=== PATIENT | male | born 1955 | race Caucasian/White ===

== ENCOUNTER 2020-11-09 10:16 | Outpatient (CLI) | payer MEDICARE, SELFPAY ==
[2020-11-09 10:37] LABS: Basophils Absolute Auto 0.1 K/mm3 (0.0-0.1); Basophils Percent Auto 0.7 % (0.2-1.2); Eosinophils Absolute Auto 0.2 K/mm3 (0-0.3); Eosinophils Percent Auto 1.8 % (0-4.4); Hematocrit 50.3 % (42.0-52.0); Hemoglobin 17.2 g/dL (14.0-18.0); Immature Granulocyte Absolute 0.04 K/mm3 (0.00-0.031); Immature Granulocyte Percent A 0.5 % (0-0.5); Lymphocytes Absolute Auto 1.74 K/mm3 (0.9-3.2); Lymphocytes Percent Auto 21.3 % (18.3-44.2); Mean Corpuscular HGB Conc 34.2 g/dl (32-36); Mean Corpuscular Volume 96.5 fl (80-100); Mean Platelet Volume 10.2 fl (7.4-10.4); Monocytes Absolute Auto 0.7 K/mm3 (0.1-0.6); Monocytes Percent Auto 8.4 % (2.6-8.5); Neutrophils Absolute Auto 5.5 K/mm3 (1.3-6.7); Neutrophils Percent Auto 67.3 % (45.5-73.1); Platelet Count Result 175 k/mm3 (150-375); Red Blood Count 5.21 M/mm3 (4.6-6.20); Red Cell Distribution Width 12.9 % (11.5-14.5); White Blood Count 8.2 K/mm3 (4.5-10.0)
[2020-11-09 11:43] LABS: Vitamin D 25 Hydroxy 44.2 ng/mL
[2020-11-09 13:03] LABS: Alanine Aminotransferase 46 U/L (4-50); Albumin Level 4.4 g/dL (3.5-5.1); Alkaline Phosphatase 53 U/L (38-126); Anion Gap 6 mmol/L (8-16); Aspartate Amino Transferase 27 U/L (17-59); Bilirubin,Total 1.3 mg/dL (0.2-1.3); Blood Urea Nitrogen 16 mg/dL (9-20); Calcium 9.7 mg/dL (8.4-10.2); Carbon Dioxide 29 mmol/L (22-30); Chloride 105 mmol/L (98-107); Cholesterol 193 mg/dL (0-200); Estimated Glomerular Filt Rate > 60; Glucose 113 mg/dL (65-110); HDL Direct 36 mg/dL; Potassium 4.5 mmol/L (3.4-5.0); Sodium 140 mmol/L (137-145); Triglycerides 113 mg/dL (<150)
[2020-11-09 13:13] LABS: LDL Cholesterol Direct 118 mg/dL
== END 2020-11-09 10:17 | disposition home or self-care (01) ==
PROVIDERS: PCP Family Medicine; Visit Provider Nurse Practitioner Family
DX: E55.9 Vitamin D deficiency, unspecified (principal); E78.5 Hyperlipidemia, unspecified; Z72.0 Tobacco use
CPT/HCPCS: 36415; 80053; 80061; 82306; 82607; 82746; 85025

== ENCOUNTER 2020-11-23 08:27 | Outpatient (CLI) | payer MEDICARE, SELFPAY ==
--- NOTE | ~2020-11-23 | CT_ITS ---
EXAMINATION: CT diagnostic chest wo con DATE: 11/23/2020 08:46 INDICATION: Encounter for screening for malignant neoplasm of the respiratory organs TECHNIQUE: Computed tomography (CT) of the chest was performed without intravenous contrast. The dose -length product (DLP) was 226.21 mGy-cm. Automated exposure control and iterative reconstruction tech nique were employed. COMPARISON: None FINDINGS: There is mild dependent atelectasis. A 3 mm nodule is present in the left lower lobe. The l ungs are free of acute opacities. There is no pleural effusion or pneumothorax. No pathologically enl arged thoracic lymph nodes are identified. The heart size is normal. Calcified coronary artery athero sclerosis is noted. There is mild bilateral gynecomastia. A 7 mm subcutaneous nodule of the left of m idline in the upper chest likely represents a sebaceous cyst. There are bridging osteophytes at multi ple levels in the spine, consistent with diffuse idiopathic skeletal hyperostosis (DISH). IMPRESSION: 1. 3 mm nodule of the left lower lobe, likely old granulomatous disease. Consider follow-up CT in 12 months. Reviewed, dictated and finalized at location A. IMPRESSION: 1. 3 mm nodule of the left lower lobe, likely old granulomatous disease. Consid er follow-up CT in 12 months.
--- NOTE | ~2020-11-23 | US_ITS ---
EXAMINATION: US aorta [facility] DATE: 11/23/2020 08:54 INDICATION: Nicotine dependence. Hypercholesterolemia. TECHNIQUE: Grayscale, color Doppler, and pulsed Doppler images of the aorta and common iliac arteries were obtained. COMPARISON: None. FINDINGS: The proximal aorta measures 3.1 cm in maximal AP diameter. The mid aorta measures 2.9 cm. There is a fusiform infrarenal aneurysm in the mid to distal aorta which measures up to 5.1 cm maximal diameter which tapers to 2.2 cm at the bifurcation. The right common iliac artery measures 1.6 cm. The left co mmon iliac artery measures 2.1 cm. IMPRESSION: 1. Fusiform infrarenal abdominal aortic aneurysm measuring up to 5.1 cm in maximal diameter. Reviewed, dictated and finalized at location A. IMPRESSION: 1. Fusiform infrarenal abdominal aortic aneurysm measuring up to 5.1 cm in maxi mal diameter.
== END 2020-11-23 08:28 | disposition home or self-care (01) ==
LOC: ANHIMG 08:30
PROVIDERS: PCP Family Medicine; Visit Provider Nurse Practitioner Family
DX: Z12.2 Encounter for screening for malignant neoplasm of respiratory organs (principal); R91.1 Solitary pulmonary nodule; F17.210 Nicotine dependence, cigarettes, uncomplicated; I25.10 Atherosclerotic heart disease of native coronary artery without angina pectoris; I71.4 Abdominal aortic aneurysm, without rupture
CPT/HCPCS: 71250; 76706

== ENCOUNTER 2021-01-24 07:28 | Outpatient (CLI) | payer MEDICARE, SELFPAY ==
--- NOTE | 2021-01-24 08:00 | ECHO_ITS ---
Patient Info Name: Wes Huang Age: 65 years : 1955 Gender: Male Ht: 71 in Wt: 234 lbs BSA: 2.34 m2 HR: 54 bpm BP: 143 / 73 mmHg Heart Rhythm: Sinus Rhythm Exam Date: 01/24/2021 9:09 AM Exam Location: [facility] Patient Status: Outpatient Admit Date: 01/24/2021 Staff Ordering Physician: Geraldine Gonzales NP Director Of Retail: Simran Chavez RDCS Attending Provider: ANA MARIA RAMEY DO Referring Physician: Janet NORRIS; Exam Type: CA echo doppler color flow Study Info Indications I71.4 - Abdominal aortic aneurysm, without rupture Complete two-dimensional, color flow and Doppler transthoracic echocardiogram is performed. Summary 1. Complete two-dimensional, color flow and Doppler transthoracic echocardiogram is performed. 2. Left ventricular chamber dimension is normal. 3. Left ventricular systolic function is normal, estimated at 60-65%. 4. The left ventricular diastolic function is grade I diastolic dysfunction. 5. E/e' 10 is mildly elevated. 6. There is trace aortic valve regurgitation. 7. The mitral valve has mildly calcified annulus. 8. There is trace mitral valve regurgitation. 9. There is trace tricuspid valve regurgitation. 10. No pulmonary hypertension, estimated pulmonary arterial systolic pressure is 36 mmHg. Left Ventricle E/e' 10 is mildly elevated. Left ventricular chamber dimension is normal. Left ventricular systolic function is normal, estimated at 60-65%. The left ventricular diastolic function is grade I diastolic dysfunction. Right Ventricle Right ventricular systolic function is normal and with normal TAPSE 2.7 cm. Right ventricular chamber dimension is normal. Left Atria Left atrial chamber dimension is normal. Right Atria Right atrial chamber dimension is normal. Aortic Valve The aortic valve is trileaflet. There is no aortic valve stenosis. There is trace aortic valve regurgitation. Pulmonic Valve There is no pulmonic regurgitation. Mitral Valve The mitral valve has mildly calcified annulus. There is no mitral valve stenosis. There is trace mitral valve regurgitation. Tricuspid Valve There is trace tricuspid valve regurgitation. No pulmonary hypertension, estimated pulmonary arterial systolic pressure is 36 mmHg. Pericardium/Pleural There is no pericardial effusion. Inferior Vena Cava Normal inferior vena cava with >50% collapse upon inspiration consistent with normal right atrial pressure, 5 mmHg. Aorta The aortic root size at the sinus of Valsalva is normal. Left Ventricular Outflow Tract Name Value Normal LVOT 2D LVOT Diameter 1.9 cm LVOT Doppler LVOT Peak Gradient 5 mmHg LVOT Mean Gradient 2 mmHg LVOT VTI 31 cm LVOT VTI/AV VTI Ratio 0.8 LVOT Stroke Volume 86 ml LVOT CO 4.2 l/min LVOT CI 1.8 l/min/m2 Pulmonic Valve Name
--- NOTE | 2021-01-24 08:01 | EST_ITS ---
Patient Info Name: Wes Huang Age: 65 years : 1955 Gender: Male Ht: 71 in Wt: 234 lbs BSA: 2.34 m2 HR: 57 bpm BP: 142 / 97 mmHg Heart Rhythm: Sinus Rhythm Exam Date: 01/24/2021 9:02 AM Exam Location: [facility] Patient Status: Outpatient Admit Date: 01/24/2021 Staff Ordering Physician: Geraldine Gonzales NP Attending Provider: Geraldine Gonzales NP Exercise Technologist: Nay Oliveira RDCS Exercise Physician: Ren Moss DO Exam Type: CA stress test treadmill Study Info Indications I71.4 - Abdominal aortic aneurysm, without rupture An exercise stress test was performed. Summary 1. 1. Negative [facility] exercise stress test for ischemic ST changes by ECG criteria. 2. 2. Good functional capacity, achieving 8.6 METs of workload. 3. 3. Baseline hypertension. 4. 4. Appropriate HR response to exercise. 5. 5. Appropriate HR recovery at 1 minute post exercise. 6. 6. No imaging with stress testing. 7. 7. Patient informed of the above results. Protocol: [facility] ECG Details Stage: REST Duration (min): 6 min : 26 sec Speed (mph): 0.0 Grade (%): 0 HR (bpm): 58 SBP (mmHg): 142 DBP (mmHg): 97 METS: --- Stage: REST Duration (min): 16 min : 12 sec Speed (mph): 0.0 Grade (%): 0 HR (bpm): 60 SBP (mmHg): 142 DBP (mmHg): 97 METS: --- Stage: STAGE 1 Duration (min): 1 min : 0 sec Speed (mph): 1.7 Grade (%): 10 HR (bpm): 89 SBP (mmHg): 142 DBP (mmHg): 97 METS: --- Stage: STAGE 1 Duration (min): 2 min : 0 sec Speed (mph): 1.7 Grade (%): 10 HR (bpm): 102 SBP (mmHg): 142 DBP (mmHg): 97 METS: --- Stage: STAGE 1 Duration (min): 3 min : 0 sec Speed (mph): 1.7 Grade (%): 10 HR (bpm): 103 SBP (mmHg): 171 DBP (mmHg): 92 METS: --- Stage: STAGE 2 Duration (min): 1 min : 0 sec Speed (mph): 2.5 Grade (%): 12 HR (bpm): 110 SBP (mmHg): 171 DBP (mmHg): 92 METS: --- Stage: STAGE 2 Duration (min): 2 min : 0 sec Speed (mph): 2.5 Grade (%): 12 HR (bpm): 114 SBP (mmHg): 140 DBP (mmHg): 90 METS: --- Stage: STAGE 2 Duration (min): 3 min : 0 sec Speed (mph): 2.5 Grade (%): 12 HR (bpm): 120 SBP (mmHg): 140 DBP (mmHg): 90 METS: --- Stage: STAGE 3 Duration (min): 0 min : 55 sec Speed (mph): 3.4 Grade (%): 14 HR (bpm): 132 SBP (mmHg): 140 DBP (mmHg): 90 METS: --- Stage: RECOVERY Duration (min): 0 min : 4 sec Speed (mph): 1.5 Grade (%): 0 HR (bpm): 131 SBP (mmHg): 140 DBP (mmHg): 90 METS: --- Stage: RECOVERY Duration (min): 1 min : 4 sec Speed (mph): 0.0 Grade (%): 0 HR (bpm): 109 SBP (mmHg): 140 DBP (mmHg): 90 METS: --- Stage: RECOVERY Duration (min): 2 min : 4 sec Speed (mph): 0.0 Grade (%): 0 HR (bpm): 80 SBP (mmHg): 140 DBP (mmHg):
--- NOTE | 2021-01-29 12:46 | WPDHOLTEREM ---
Holter/Event Monitor Holter/Event Monitor Date of procedure: 01/24/21 Holter/Event Procedure: 48 Hr Holter Monitor Indications: Cardiac arrhythmia Conclusion: 1. 48 hour holter monitor on 01/24/21. 2. Underlying rhythm is sinus rhythm. HR range 41-102 bpm; average HR 57 bpm. 3. There are 105 premature supraventricular complexes, 2 supraventricular couplets, and 3 supraventricular trigeminy. No supraventricular tachycardia. 4. There are 124 premature ventricular complexes. No ventricular tachycardia. 5. No sinoatrial or atrioventricular blocks. No significant pauses greater than 2 seconds. 6. Patient reports symptoms of heart racing, shortness of breath which demonstrate sinus rhythm, HR range 50-56 bpm and one PAC.
== END 2021-01-24 07:29 | disposition home or self-care (01) ==
LOC: ANHCARD 07:32
PROVIDERS: PCP Family Medicine; Visit Provider Nurse Practitioner Family
DX: I71.9 Aortic aneurysm of unspecified site, without rupture (principal); I49.9 Cardiac arrhythmia, unspecified
CPT/HCPCS: 93017; 93225; 93226; 93306

== ENCOUNTER 2021-03-14 01:30 | Day surgery (SDC) | payer MEDICARE, SELFPAY ==
[2021-02-21 14:45] VITALS: BMI 32.8
--- NOTE | 2021-03-13 13:28 | P.HP_ITS ---
History of Present Illness History of Present Illness Consent: Risks, benefits, and alternatives have been discussed and questions answered. Patient agrees to proceed with procedure. Chief complaint: neoplasm screening Narrative: Wes Huang is a 65 year old male referred for colon cancer screening. His last colonoscopy was 10 years ago Review of Systems Review of Systems: All systems reviewed & are unremarkable except as noted in HPI and below PMFSH Past Medical History Medical History Aortic aneurysm without rupture BMI 32.0-32.9,adult BMI 33.0-33.9,adult Hyperlipidemia Vitamin D deficiency, unspecified Surgical History Surgical History H/O bilateral inguinal hernia repair H/O right knee surgery History of neoplasm of bladder tumor removal 2014 Family History Family History Father , 1970 Stomach cancer Alcohol abuse Mother Pulmonary embolism Sibling Diabetes mellitus Social History Social History Smoking packs per day: 0.5 Smoking cigarettes per day: 10.0 Years smoked: 40 Smoking pack-years: 20.00 Smoking status: Former smoker Tobacco type: cigarettes Second hand tobacco smoke exposure: Yes Smoking end date: 11/20/20 Alcohol intake: current Drinks per week: 12 Substance use: former Substance use type: does not use Living arrangements: with family Additional occupation/education comments: [employer] Gender identity (if verbalized by the patient): Male Spiritual care concerns: No Meds Home Medications and Allergies Home Medications Medication Instructions Recorded Confirmed Type atorvastatin 40 mg tablet 40 mg PO DAILY #90 tablet 11/07/20 03/14/21 Rx cholecalciferol (vitamin D3) 12.5 mcg PO DAILY 11/07/20 02/21/21 History cyanocobalamin (vitamin B-12) 1,000 mcg PO DAILY 11/07/20 02/21/21 History 1,000 mcg capsule lutein 25 mg-zeaxanthin 5 mg 1 cap PO DAILY 11/07/20 02/21/21 History capsule tamsulosin 0.4 mg capsule 0.4 mg PO DAILY 11/07/20 02/21/21 History Allergies Allergy/AdvReac Type Severity Reaction Status Date / Time No Known Allergies Allergy Verified 03/14/21 06:50 Exam Resp: Auscultation: clear to auscultation bilaterally Cardio: Rate: regular rate Rhythm: regular rhythm GI: GI Palp: Yes Soft to palpation and No Tenderness to palpation present (GI) Assessment and Plan Assessment and plan (1) Screening for malignant neoplasm of colon: Code(s): Z12.11 - Encounter for screening for malignant neoplasm of colon Status: Acute Assessment and Plan: Colonoscopy with possible biopsy or polypectomy or cautery or injection of substances.
[2021-03-14 06:50] VITALS: BP 137/74; PULSE 71; RESP 20; TEMP 36.3; O2SAT 97
[2021-03-14] MEDS: LACTATED RINGERS 1,000 ML 150 ML IV CONT (07:01)
--- NOTE | 2021-03-14 07:45 | WPDANESEPPF ---
Anes - Initial Pre Proc Eval Procedure: Operation Date: 03/14/21 08:00 Proposed Procedures p Screening Colonoscopy - Filiberto Contreras MD Date/Time: 03/14/21 07:45 Surgeon: Filiberto Contreras MD Pre Op Diagnosis: neoplasm screening Patient Data Age: 65 Gender: M Height: 1.8 m Weight: 111.2 kg Last Vital Signs Temp 97.4 F L 03/14/21 06:50 Pulse 71 03/14/21 06:50 Resp 20 03/14/21 06:50 BP 137/74 03/14/21 06:50 Pulse Ox 97 03/14/21 06:50 Allergies Allergy/AdvReac Type Severity Reaction Status Date / Time No Known Allergies Allergy Verified 03/14/21 06:50 Home Medications Medication Instructions Recorded Confirmed Type atorvastatin 40 mg tablet 40 mg PO DAILY #90 tablet 11/07/20 03/14/21 Rx cholecalciferol (vitamin D3) 12.5 mcg PO DAILY 11/07/20 02/21/21 History cyanocobalamin (vitamin B-12) 1,000 mcg PO DAILY 11/07/20 02/21/21 History 1,000 mcg capsule lutein 25 mg-zeaxanthin 5 mg 1 cap PO DAILY 11/07/20 02/21/21 History capsule tamsulosin 0.4 mg capsule 0.4 mg PO DAILY 11/07/20 02/21/21 History Patient hx anesthesia problems: none Family hx anesthesia problems: none Results Review: All pre-operative results and documents have been reviewed as part of the pre-operative evaluation. [facility] Past Medical History Medical History Aortic aneurysm without rupture BMI 32.0-32.9,adult BMI 33.0-33.9,adult Hyperlipidemia Vitamin D deficiency, unspecified Surgical History Surgical History H/O bilateral inguinal hernia repair H/O right knee surgery History of neoplasm of bladder tumor removal 2014 Family History Family History Father , 1970 Stomach cancer Alcohol abuse Mother Pulmonary embolism Sibling Diabetes mellitus Social History Social History Smoking packs per day: 0.5 Smoking cigarettes per day: 10.0 Years smoked: 40 Smoking pack-years: 20.00 Smoking status: Former smoker Tobacco type: cigarettes Second hand tobacco smoke exposure: Yes Smoking end date: 11/20/20 Alcohol intake: current Drinks per week: 12 Substance use: former Substance use type: does not use Living arrangements: with family 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 Informed Consent: The patient's anesthetic plan and its attendant risks and benefits were discussed with the patient/family/POA. Questions were solicited and answers provided to the satisfaction of the patient/family/POA.
[2021-03-14] MEDS: SIMETHICONE ORAL SUSPENSION 20 MG/0.3 ML 30 ML BOTTLE 0.6 ML IRRIGATION (08:04)
[2021-03-14 08:14] VITALS: BP 125/81; PULSE 55; RESP 16; O2SAT 96
[2021-03-14 08:24] VITALS: BP 124/84; PULSE 55; RESP 16; O2SAT 98
[2021-03-14 08:34] VITALS: BP 134/83; PULSE 53; RESP 20; O2SAT 100
== END 2021-03-14 08:53 | disposition home or self-care (01) ==
PROVIDERS: PCP Family Medicine; Visit Provider Internal Medicine Gastroenterology
PROC: 0DJD8ZZ Inspection of Lower Intestinal Tract, Via Natural or Artificial Opening Endoscopic (ICD-10-PCS; CPT 45378; principal; 2021-03-14 08:00)
DX: Z12.11 Encounter for screening for malignant neoplasm of colon (principal); D12.4 Benign neoplasm of descending colon; K63.5 Polyp of colon; K64.4 Residual hemorrhoidal skin tags; K64.8 Other hemorrhoids; I71.4 Abdominal aortic aneurysm, without rupture; E78.5 Hyperlipidemia, unspecified; E55.9 Vitamin D deficiency, unspecified; Z87.891 Personal history of nicotine dependence; E66.9 Obesity, unspecified; Z68.34 Body mass index [BMI] 34.0-34.9, adult
CPT/HCPCS: 45380; 45385; 88305; J2001; J2704; J7120

== ENCOUNTER 2021-11-08 13:33 | Outpatient (CLI) | payer MEDICARE, SELFPAY ==
--- NOTE | ~2021-11-08 | CT_ITS ---
EXAMINATION: CT diagnostic chest wo con DATE: 11/08/2021 14:03 INDICATION: Follow up evaluation of nodule TECHNIQUE: Computed tomography (CT) of the chest was performed without intravenous contrast. Addition al 3D reconstructions utilizing coronal maximum intensity projection (MIP) were performed. Automated exposure control and iterative reconstruction technique were employed. The dose-length product was 26 4.28 mGy-cm. COMPARISON: 11/23/2020 FINDINGS: No interval change in a previous noted 3 mm nodules in the anterior basilar segment of the left lower lobe consistent with old granulomatous disease. No significant change in scattered linear discoid at electasis/scarring in the bilateral lower lobes and lingula. No new or enlarging pulmonary nodules, p neumonia, pulmonary edema or pleural effusion. Heart size is normal. Atherosclerotic coronary artery calcific lesion. Aortic valve and mitral annular calcification. No pericardial effusion. Thoracic aor ta is normal in caliber. No pathologically enlarged thoracic lymphadenopathy. Diffuse hepatic steatos is with focal sparing along the gallbladder fossa. lymphadenopathy. Thoracic kyphosis with bridging o steophytes at multiple levels consistent with diffuse idiopathic skeletal hyperostosis (DISH). IMPRESSION: 1. Unchanged 3 mm left lower lobe nodule consistent with old granulomatous disease. 2. Stable appearance of chronic discoid atelectasis/scarring the lingula and bilateral lower lobes. 3. Diffuse hepatic steatosis. Reviewed, dictated and finalized at location A. IMPRESSION: 1. Unchanged 3 mm left lower lobe nodule consistent with old granulomatous dise ase. 2. Stable appearance of chronic discoid atelectasis/scarring the lingula and bi lateral lower lobes. 3. Diffuse hepatic steatosis.
--- NOTE | ~2021-11-08 | XR_ITS ---
XR knee LT 3V DATE: 11/08/2021 14:03 INDICATION: Pain and locking of left knee TECHNIQUE: [place] and standing AP and lateral views COMPARISON: None FINDINGS: There is a small suprapatellar knee joint effusion. No fracture or dislocation, periosteal reaction or bone destruction. There is mild periarticular spurring of the medial and patellofemoral compartments. There is minimal chondrocalcinosis. Knee joint spaces are relatively well preserved. Mild superior pole patellar enthesopathy. IMPRESSION: Mild osteoarthritis and chondrocalcinosis Small knee joint effusion Reviewed, dictated and finalized at location B.
== END 2021-11-08 13:34 | disposition home or self-care (01) ==
PROVIDERS: PCP Family Medicine; Visit Provider Nurse Practitioner Family
DX: R91.1 Solitary pulmonary nodule (principal); M17.12 Unilateral primary osteoarthritis, left knee; M25.462 Effusion, left knee; M40.204 Unspecified kyphosis, thoracic region; K76.0 Fatty (change of) liver, not elsewhere classified; I25.10 Atherosclerotic heart disease of native coronary artery without angina pectoris; I70.0 Atherosclerosis of aorta; M11.262 Other chondrocalcinosis, left knee; M76.9 Unspecified enthesopathy, lower limb, excluding foot
CPT/HCPCS: 71250; 73562

== ENCOUNTER 2022-02-05 14:30 | Outpatient (RCR) | payer MEDICARE, SELFPAY ==
[2021-11-07 10:03] VITALS: BMI 35.1
[2021-11-07 11:42] VITALS: BMI 35.1
[2022-02-11 13:47] VITALS: BMI 35.1
== END 2022-02-05 23:59 | disposition home or self-care (01) ==
LOC: ANHDMC 14:30
PROVIDERS: PCP Family Medicine; Visit Provider Family Medicine
DX: E11.65 Type 2 diabetes mellitus with hyperglycemia (principal); Z71.3 Dietary counseling and surveillance; Z71.89 Other specified counseling
CPT/HCPCS: 97802; G0108; G0109

== ENCOUNTER 2022-03-26 09:16 | Outpatient (CLI) | payer MEDICARE, SELFPAY ==
--- NOTE | 2022-03-26 09:31 | ECG_ITS ---
Measurements Intervals [place] Rate: 58 P: -1 NM: 149 QRS: -30 QRSD: 102 T: 38 QT: 392 QTc: 387 Interpretive Statements SINUS BRADYCARDIA BORDERLINE R WAVE PROGRESSION, ANTERIOR LEADS BORDERLINE ECG NO PREVIOUS ECG AVAILABLE FOR COMPARISON Electronically Signed On 03-26-2022 10:22:31 [employer] by Ren Moss D.O.
== END 2022-03-26 09:17 | disposition home or self-care (01) ==
PROVIDERS: PCP Family Medicine; Visit Provider Urology
DX: C67.9 Malignant neoplasm of bladder, unspecified (principal); E78.5 Hyperlipidemia, unspecified; R00.1 Bradycardia, unspecified
CPT/HCPCS: 87086; 93005

== ENCOUNTER 2022-04-01 00:25 | Day surgery (SDC) | payer MEDICARE, SELFPAY ==
--- NOTE | 2022-03-24 11:27 | PC.NURSE ---
Report to the Outpatient Waiting Room, entrance under the green pavilion located off [facility], at time __0745 on date _04/01/22 . Planned Procedure Time: __45 . Time changes happen often and if your time is changed the preop area will call you the afternoon before. - You and your visitor will be asked to self-screen and do not enter if you have any COVID symptoms. - Only one visitor is requested with a max of two and NO children visitors are allowed at this time. - The patient visitor may be requested to leave or wait in car when not with patient due to distancing restrictions. - A mask is optional within the hospital. Patients may have clear liquids (water, carbonated beverages, clear teas, apple juice) until 3 hours prior to surgery with a maximum of 20 ounces. - No food from midnight until time of surgery - Infants may have breast milk until 4 hours before surgery, formula 6 hours prior to surgery. - Children will be allowed to drink immediately following surgery. If applicable, please bring a bottle or sippy cup to assist with drinking. Juice, water, soda, and popsicles are readily available. For infants on formula, please bring formula the day of surgery. Pacifiers are allowed. Take the following medications with a SIP of water the morning of surgery: __NONE Medications to discontinue per physician _ALL VITAMINS AND SUPPLEMENTS 3 DAYS PRE OP LAST DOSE 03/28/22 Date to take last dose Please no make-up, nail swedish, hairspray, perfume, deodorant, or body powder the day of surgery. No jewelry (including any body piercings) or valuables the day of surgery, leave them at home. Please take a shower or bath the night before, or the morning of, surgery with an antibacterial soap. Wear comfortable, loose fitting clothing. Children are encouraged to wear pajamas. - Jewelry must be removed prior to entering the operating room. Rings and piercings that are not removed may be cut off. - The hospital will not accept responsibility for valuables. - Please leave all valuables, including medications, at home the day of surgery. If you are going home after surgery, a licensed delivery driver/supervisor must drive you home. - NO public transportation without another adult if you receive anesthesia. - We recommend that an adult stay with you for 24 hours following discharge. - We also recommend that you do not drive, make important decision, drink alcoholic beverages, or take any drugs that were not prescribed by your health care provider for at least 24 hours after your discharge time. Follow any additional instructions given to you from your surgeon. If you or anyone in your household have experienced Covid symptoms in the past week, please notify your surgeon or the nurse liaison at the phone number below for possible testing. Telephone instructions given to _PATIENT and asked if any additional questions and then verbalized understanding. Patient advised to call surgeon office or pre surgery nurse liaison [phone] if any additional questions.
[2022-03-24 11:38] VITALS: BMI 33.5
[2022-04-01] VITALS (7 sets, daily range): BP systolic 124–146; BP diastolic 68–81; PULSE 56–70; RESP 12–18; TEMP 36.6–37.3; O2SAT 97–99
[2022-04-01] MEDS: LACTATED RINGERS 1,000 ML 30 ML IV CONT (08:12)
--- NOTE | 2022-04-01 08:23 | WPDHPUPDATE1 ---
History and Physical Update Update Date/Time: 04/01/22 08:23 History and Physical has been reviewed, including an updated exam of the patient. There are NO changes in the patient's condition. Risks, benefits, and alternatives have been discussed and questions answered. Patient agrees to proceed with procedure.
--- NOTE | 2022-04-01 09:20 | WPDANESEPPF ---
Anes - Initial Pre Proc Eval Procedure: Operation Date: 04/01/22 09:45 Proposed Procedures p Cystoscopy with Bladder Biopsy Fulguration - Bruno Webb MD Date/Time: 04/01/22 09:20 Surgeon: Bruno Webb MD Pre Op Diagnosis: Bladder Ca Patient Data Age: 66 Gender: M Height: 1.8 m Weight: 110.9 kg Last Vital Signs Temp 99.2 F 04/01/22 07:58 Pulse 70 04/01/22 07:58 Resp 16 04/01/22 07:58 BP 124/80 04/01/22 07:58 Pulse Ox 98 04/01/22 07:58 O2 Del Method Room Air 04/01/22 07:58 Allergies Allergy/AdvReac Type Severity Reaction Status Date / Time No Known Allergies Allergy Verified 04/01/22 07:48 Home Medications Medication Instructions Recorded Confirmed Type cyanocobalamin (vitamin B-12) 1,000 mcg PO DAILY 11/07/20 03/24/22 History 1,000 mcg capsule lutein 25 mg-zeaxanthin 5 mg 1 cap PO DAILY 11/07/20 03/24/22 History capsule (Ocuvite Lutein) atorvastatin 40 mg tablet 40 mg PO DAILY #90 tabs 07/28/21 03/24/22 Rx albuterol sulfate 90 mcg/actuation 2 inh inhalation Q4H PRN shortness 10/24/21 03/24/22 Rx aerosol inhaler of breath or wheezing #8.5 grams blood sugar diagnostic (OneTouch #50 ea 02/07/22 Rx Verio test strips) lancets 30 gauge #200 ea 02/07/22 Rx celecoxib 100 mg capsule (Celebrex) 100 mg PO BID #60 caps 03/04/22 03/24/22 Rx cholecalciferol (vitamin D3) 125 125 mcg PO DAILY 03/24/22 03/24/22 History mcg (5,000 unit) tablet tamsulosin 0.4 mg capsule 0.4 mg PO DAILY #90 caps 03/31/22 Rx Patient hx anesthesia problems: none Family hx anesthesia problems: none Results Review: All pre-operative results and documents have been reviewed as part of the pre-operative evaluation. [facility] Past Medical History Medical History Aortic aneurysm without rupture BMI 32.0-32.9,adult BMI 33.0-33.9,adult BMI 35.0-35.9,adult Hyperlipidemia Vitamin D deficiency, unspecified Surgical History Surgical History H/O bilateral inguinal hernia repair H/O right knee surgery History of neoplasm of bladder tumor removal 2014 Family History Family History Father , 1970 Stomach cancer Alcohol abuse Mother Pulmonary embolism Sibling Diabetes mellitus Social History Social History Smoking packs per day: 0.5 Smoking cigarettes per day: 10.0 Years smoked: 40 Smoking pack-years: 20.00 Smoking status: Former smoker Tobacco type: cigarettes Second hand tobacco smoke exposure: Yes Smoking end date: 11/20/20 Alcohol intake: current Drinks per week: 10 Substance use: former Substance use type: does not use Living arrangements: with family Occupation/Education: retired Additional occupation/education comments: [employer] Gender identity (if verbalized by the patient): Male Spiritual care concerns: No Anes - Eval Final PreProcedure Day of Procedure 04/01/22 09:20 Patient weight: obese Heart: regular rate and rhythm Lungs: clear to auscultation Airway: Mallampati scale Neurological: alert and oriented Last oral intake: >/= 8 hours ASA classification: III Emergent: no Anesthetic plan: proceed Anesthesia type and monitoring: general LMA and standard monitoring Results Review: All pre-operative results and documents have been reviewed as part of the pre-operative evaluation. Informed Consent: The patient's anesthetic plan and its attendant risks and benefits were discussed with the patient/family/POA. Questions were solicited and answers provided to the satisfaction of the patient/family/POA.
[2022-04-01] MEDS: ceFAZolin 2 GM/D5W 50 ML 2 GM/50 ML BAG IVPB (09:29)
--- NOTE | 2022-04-01 10:04 | W.PM.PROC2 ---
Procedure Note - Detailed Date of Procedure 04/01/22 Pre-op Diagnosis Bladder Ca Post-op Diagnosis Same Procedure Performed Cysto with bladder biopsy and fulguration Surgeon Bruno Webb MD Anesthesia General Description of Procedure Patient is taken to the operative suite and correctly identified. Once anesthesia was obtained was placed in dorsal lithotomy position prepped draped usual sterile fashion. Twenty-two Salvadorean scope inserted the bladder. He has a small little papillary lesion along posterior wall measuring 2-3 mm. We used the cold cup biopsy to biopsy this area and then fulgurated the base. Prior resection site along the right lateral wall also revealed some irregularities. These lesions simply seemed to scrape off. We were able to biopsy 1 of the areas. We then fulgurated the area in general. 2% viscous lidocaine was inserted into the urethra patient is taken recovery stable condition. Please send a copy this report to my office Estimated Blood Loss 0 Drains No Packing No Pathology Yes Complications No immediate complications Condition Stable Disposition PACU
--- NOTE | 2022-04-01 10:30 | SUR.PHASEI ---
1030: Simple mask removed.
== END 2022-04-01 11:38 | disposition home or self-care (01) ==
PROVIDERS: PCP Family Medicine; Visit Provider Urology
PROC: 0TBB8ZX Excision of Bladder, Via Natural or Artificial Opening Endoscopic, Diagnostic (ICD-10-PCS; CPT 52204; principal; 2022-04-01 09:45)
DX: N30.80 Other cystitis without hematuria (principal); E78.5 Hyperlipidemia, unspecified; E55.9 Vitamin D deficiency, unspecified; I71.9 Aortic aneurysm of unspecified site, without rupture; Z87.891 Personal history of nicotine dependence; E66.9 Obesity, unspecified; Z68.34 Body mass index [BMI] 34.0-34.9, adult; Z79.51 Long term (current) use of inhaled steroids
CPT/HCPCS: 52204; 88305; A9270; J0690; J1100; J2405; J2704; J3010; J7120

== ENCOUNTER 2022-04-16 07:22 | Outpatient (CLI) | payer MEDICARE, SELFPAY ==
[2022-04-16 08:13] LABS: Hematocrit 45.6 % (42.0-52.0); Hemoglobin 15.6 g/dL (14.0-18.0); Immature Platelet Fraction Pct 7.2 % (0.9-11.2); Mean Corpuscular HGB Conc 34.2 g/dl (32-36); Mean Corpuscular Hemoglobin 31.9 pg (26-34); Mean Corpuscular Volume 93.3 fl (80-100); Mean Platelet Volume 10.4 fl (7.4-10.4); Platelet Count Result 196 k/mm3 (150-375); Red Blood Count 4.89 M/mm3 (4.6-6.20); Red Cell Distribution Width 12.9 % (11.5-14.5); White Blood Count 6.8 K/mm3 (4.5-10.0)
[2022-04-16 08:20] LABS: Creatinine Urine 104.4 mg/dL
[2022-04-16 08:26] LABS: Microalbumin Urine Random 121.1 mg/L (0-16.7)
[2022-04-16 08:28] LABS: Alanine Aminotransferase 43 U/L (6-50); Albumin Level 4.1 g/dL (3.5-5.1); Alkaline Phosphatase 64 U/L (38-126); Anion Gap 5 mmol/L (8-16); Aspartate Amino Transferase 23 U/L (17-59); Bilirubin,Total 1.1 mg/dL (0.2-1.3); Blood Urea Nitrogen 20 mg/dL (9-20); Calcium 8.9 mg/dL (8.4-10.2); Carbon Dioxide 33 mmol/L (22-30); Chloride 103 mmol/L (98-107); Cholesterol 131 mg/dL (0-200); Estimated Glomerular Filt Rate > 60; Glucose 143 mg/dL (65-110); HDL Direct 31 mg/dL; Potassium 4.4 mmol/L (3.4-5.0); Sodium 141 mmol/L (137-145); Triglycerides 82 mg/dL (<150)
[2022-04-16 08:39] LABS: LDL Cholesterol Direct 70 mg/dL
[2022-04-16 08:53] LABS: Prostate Specific Antigen 2.1 ng/mL (< OR = 4.0)
[2022-04-16 09:17] LABS: Vitamin D 25 Hydroxy 56.6 ng/mL
== END 2022-04-16 07:23 | disposition home or self-care (01) ==
PROVIDERS: PCP Family Medicine; Visit Provider Nurse Practitioner Family
DX: E11.9 Type 2 diabetes mellitus without complications (principal); E78.5 Hyperlipidemia, unspecified; Z12.5 Encounter for screening for malignant neoplasm of prostate; E55.9 Vitamin D deficiency, unspecified
CPT/HCPCS: 36415; 80053; 80061; 82043; 82306; 84153; 84443; 85027; 85055; G0103

== ENCOUNTER 2022-04-24 14:30 | Outpatient (RCR) | payer MEDICARE, SELFPAY | END 2022-05-12 23:59 | disposition home or self-care (01) | LOC: ANHDMC 14:30 | PROVIDERS: PCP Family Medicine; Visit Provider Family Medicine | DX: E11.65 Type 2 diabetes mellitus with hyperglycemia (principal); Z71.3 Dietary counseling and surveillance; Z71.89 Other specified counseling | CPT/HCPCS: 97803; G0109 ==

== ENCOUNTER 2022-08-30 07:21 | Outpatient (CLI) | payer MEDICARE, SELFPAY ==
[2022-08-30 08:58] LABS: Creatinine Urine 173.2 mg/dL
[2022-08-30 09:02] LABS: MALB Creatinine Ratio 6.6 mg/g (0-30); Microalbumin Urine Random 11.4 mg/L (0-16.7)
== END 2022-08-30 07:22 | disposition home or self-care (01) ==
PROVIDERS: PCP Family Medicine; Visit Provider Nurse Practitioner Family
DX: R80.9 Proteinuria, unspecified (principal)
CPT/HCPCS: 82043

== ENCOUNTER 2022-09-22 14:17 | Outpatient (CLI) | payer MEDICARE, SELFPAY ==
[2022-09-22 15:02] LABS: Basophils Absolute Auto 0.1 K/mm3 (0.0-0.1); Basophils Percent Auto 0.9 % (0.2-1.2); Eosinophils Absolute Auto 0.1 K/mm3 (0-0.3); Eosinophils Percent Auto 1.2 % (0-4.4); Hematocrit 46.8 % (42.0-52.0); Hemoglobin 15.7 g/dL (14.0-18.0); Immature Granulocyte Absolute 0.01 K/mm3 (0.00-0.031); Immature Granulocyte Percent A 0.2 % (0-0.5); Lymphocytes Absolute Auto 1.41 K/mm3 (0.9-3.2); Lymphocytes Percent Auto 21.4 % (18.3-44.2); Mean Corpuscular HGB Conc 33.5 g/dl (32-36); Mean Corpuscular Hemoglobin 31.5 pg (26-34); Mean Platelet Volume 11.1 fl (7.4-10.4); Monocytes Absolute Auto 0.7 K/mm3 (0.1-0.6); Monocytes Percent Auto 10.6 % (2.6-8.5); Neutrophils Absolute Auto 4.3 K/mm3 (1.3-6.7); Neutrophils Percent Auto 65.7 % (45.5-73.1); Platelet Count Result 186 k/mm3 (150-375); Red Blood Count 4.98 M/mm3 (4.6-6.20); Red Cell Distribution Width 12.9 % (11.5-14.5); White Blood Count 6.6 K/mm3 (4.5-10.0)
[2022-09-22 15:07] LABS: Alanine Aminotransferase 49 U/L (6-50); Albumin Level 4.5 g/dL (3.5-5.1); Alkaline Phosphatase 61 U/L (38-126); Anion Gap 8 mmol/L (8-16); Aspartate Amino Transferase 28 U/L (17-59); Bilirubin,Total 1.4 mg/dL (0.2-1.3); Blood Urea Nitrogen 14 mg/dL (9-20); Calcium 9.4 mg/dL (8.4-10.2); Carbon Dioxide 31 mmol/L (22-30); Chloride 102 mmol/L (98-107); Estimated Glomerular Filt Rate > 60; Glucose 125 mg/dL (65-110); Potassium 5.1 mmol/L (3.4-5.0); Sodium 141 mmol/L (137-145)
== END 2022-09-22 14:18 | disposition home or self-care (01) ==
PROVIDERS: PCP Family Medicine; Visit Provider Family Medicine
DX: R19.7 Diarrhea, unspecified (principal); Z68.32 Body mass index [BMI] 32.0-32.9, adult; R73.03 Prediabetes
CPT/HCPCS: 36415; 80053; 84443; 85025

== ENCOUNTER 2022-09-23 15:22 | Outpatient (CLI) | payer MEDICARE, SELFPAY | END 2022-09-23 15:23 | disposition home or self-care (01) | LOC: ANHLAB 15:24 | PROVIDERS: PCP Family Medicine; Visit Provider Family Medicine | DX: R19.7 Diarrhea, unspecified (principal) | CPT/HCPCS: 87045; 87177; 87209; 87427 ==

== ENCOUNTER 2023-05-06 07:09 | Outpatient (CLI) | payer MEDICARE, SELFPAY ==
[2023-05-06 08:15] LABS: Bilirubin,Total 1.2 mg/dL (0.2-1.3); Cholesterol 120 mg/dL (0-200); HDL Direct 33 mg/dL; Hemoglobin A1C 6.1 % (<5.7); Triglycerides 71 mg/dL (<150)
[2023-05-06 08:27] LABS: LDL Cholesterol Direct 74 mg/dL
== END 2023-05-06 07:10 | disposition home or self-care (01) ==
PROVIDERS: PCP Family Medicine; Visit Provider Nurse Practitioner Family
DX: R17 Unspecified jaundice (principal); R73.03 Prediabetes; R73.09 Other abnormal glucose; E66.9 Obesity, unspecified; Z68.31 Body mass index [BMI] 31.0-31.9, adult
CPT/HCPCS: 36415; 80061; 82247; 83036; 84443

== ENCOUNTER 2024-05-09 12:39 | Outpatient (CLI) | payer MEDICARE, SELFPAY | END 2024-05-09 12:40 | disposition home or self-care (01) | LOC: MICIMG 12:40 | PROVIDERS: PCP Family Medicine; Visit Provider Nurse Practitioner Family | DX: Z12.2 Encounter for screening for malignant neoplasm of respiratory organs (principal); Z87.891 Personal history of nicotine dependence | CPT/HCPCS: 71271 ==

== ENCOUNTER 2024-05-17 07:18 | Outpatient (CLI) | payer MEDICARE, SELFPAY ==
--- OUTSIDE RECORDS SUMMARY | 2024-05-17 07:24 | XMS_ITS | Clinical Summary ---
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 Active ibuprofen (MOTRIN) 200 MG tablet Take 200 mg by mouth. 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 Social History Tobacco Use Types Packs/Day Years Used Date Smoking Tobacco: Every Day Smokeless Tobacco: Never Sex and Gender Information Value Date Recorded Sex Assigned at Not on file Legal Sex Male 10:29 AM CDT Gender Identity Not on file Sexual Orientation Not on file Last Filed Vital Signs Vital Sign Reading Time Taken Comments Blood Pressure 114/72 03/22/2019 10:38 AM [facility] Pulse 65 03/22/2019 10:38 AM [facility] Temperature 36.9 C (98.4 F) 03/22/2019 10:38 AM [facility] Respiratory Rate 16 03/22/2019 10:38 AM [facility] Oxygen Saturation 93% 03/22/2019 10:38 AM [facility] Inhaled Oxygen Concentration - - Weight 101 kg (222 lb 9.6 oz) 03/22/2019 10:38 A M [facility] Height 180.3 cm (5' 11 ) 03/22/2019 10:38 AM [facility] Body Mass Index 31.05 03/22/2019 10:38 AM [facility] Plan of Treatment Health Maintenance Due Date Last Done Comments Dental Cleaning/Exam 1953 Tetanus (Tdap or Td) Immunization 1964 Tetanus Diphtheria and Pertu ssis Immunization (1 - Tdap) 1972 Colorectal Cancer Screening 10/25/1983 Pneumococcal: 65+ Years (1 o f 1 - PCV) 10/25/2003 Zoster Immunization (1 of 2) 10/25/2003 Covid-19 Immunization (1 - 2 024-25 season) 2023 Influenza Immunization (#1) 2023 HIB Immunization Aged Out No longer e ligible based on patient's age to complete this topic HPV Immunization Aged Out No longer e ligible based on patient's age to complete this topic Hepatitis A Immunization Aged Out No longer eligible based on patient's age to complete this topic Hepatitis B Immunization Aged Out No longer eligible based on patient's age to complete this topic Polio Immunization Aged Out No longer eligible based on patient's age to complete this topic Insurance OPT OUT NO COPAY NB
--- OUTSIDE RECORDS SUMMARY | 2024-05-17 07:24 | XMS_ITS | Clinical Summary ---
Author Organization [facility] at [facility] Office Center Address [address] [place] [address] Care Team Providers Care Creative Assistant Name Role Phone Shamar Dumont MD Unavailable [phone] Ayan Bai MD Unavailable [phone] Phi Velez MD Primary Care Provider [phone] Allergies Active Allergy Reactions Criticality Noted Date Comments Chlorhexidine Hives,Itching Medium 05/21/2023 Medications atorvastatin (LIPITOR) 40 mg tablet Take 1 tablet (40 mg total) by mouth daily Active tamsulosin (FLOMAX) 0.4 mg extended release capsule 1 capsule (0.4 mg total) Active vit C/vit E/lutein/min/om ega-3 (OCUVITE ORAL) Take 1 tablet by mouth daily Active cyanocobalamin (Vitamin B-12) 1,000 mcg tabletIndicatio ns:Prevention of Vitamin B12 Deficiency Take 1 tablet (1,000 mcg total) by mouth daily Active vitamin D3-folic acid 125 mcg (5,000 unit)-1 mg tablet Take 5,000 Units by mouth daily 12/07/2020 Active lisinopriL (PRINIVIL,ZESTR IL) 5 mg tablet Take 1 tablet (5 mg total) by mouth daily 01/17/2023 Active Active Problems Problem Noted Date Diagnosed Date Aftercare following surgery of the circulatory s ystem 05/05/2023 Assessment & Plan (05/05/2023 10:49 AM IMPROVEMENT LEADER): Status post percutaneous EVAR. Patient doing very well with no postoperative complications. Obtain [address] surveillance. AAA (abdominal aortic aneurysm) without rupture 03/30/2023 Assessment & Plan (09/02/2023 9:55 AM CDT): Status post EVAR. Stent graft in good position with stable type 2 endoleak. Follow up 1 year CTA. Assessment & Plan (05/22/2023 9:04 AM CDT): Impression: Patient is status post repair of a 5.1 cm infrarenal abdominal aortic aneurysms. Patient continues to recover well. He remains asymptomatic. CTA of abdomen and pelvis performed on 05/14/2023 reveals a patent endograft repair with a small type 2 endoleak. Stockbridge aneurysms sac is stable measuring 5.1 cm. Plan: No surgical interventions indicated at this time as aneurysms sac size remains stable in size. Discussed with the patient continued monitoring. -patient to follow-up in 3 months for re-evaluation with CT of abdomen and pelvis. Preoperative cardiovascular examination 03/23/19 24 Mixed diabetic hyperlipidemi a associated with type 2 diabetes mellitus 03/23/2023 Hypertension associated with diabetes 03/23/2023 Assessment & Plan (09/02/2023 9:55 AM CDT): Hypertension chronic controlled. Continue current medical management Type 2 diabetes mellitus wit hout complication, without long-term current use of insulin 02/27/2022 Assessment & Plan (03/11/2023 10:10 AM IMPROVEMENT LEADER): Diabetes type 2 chronic and controlled. Continue current medical management per PCP. Assessment & Plan (02/27/2022 2:09 PM IMPROVEMENT LEADER): Impression: Newly diagnosed type 2 diabetes. Patient is currently diet controlled. Last A1c was 6.4%. Plan: Continue glucose monitoring management as per primary care provider. History of tobacco abuse 03/21/2021 PAC (premature atrial contraction) 03/20/2021 Ventricular premature depolarization 03/20/2021 Bradycardia 03/20/2021 Palpitations 03/20/2021 Mixed hyperlipidemia 02/14/2021 Assessment & Plan (09/02/2023 9:55 AM CDT): Hyperlipidemia chronic controlled. Continue Lipitor. Assessment & Plan (03/11/2023 10:10 AM IMPROVEMENT LEADER): Hyperlipidemia chronic and controlled. Continue Lipitor. Assessment & Plan (02/27/2022 2:09 PM IMPROVEMENT LEADER): Impression: Chronic hyperlipidemia, controlled with statin therapy. Plan: Continue statin therapy as per primary care provider. Assessment & Plan (02/28/2021 10:47 AM IMPROVEMENT LEADER): Hyperlipidemia chronic and stable. Continue Lipitor. Assessment & Plan (02/14/2021 9:28 AM IMPROVEMENT LEADER): Hyperlipidemia chronic and stable. Continue Lipitor. 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 Patient was a good endovascular candidate and I have recommended proceeding with percutaneous EVAR. The procedure indications and all associated risks have been explained. Patient understands and agrees to proceed. Assessment & Plan (02/27/2022 2:10 PM IMPROVEMENT LEADER): Impression: Patient has a stable 4.4 cm infrarenal abdominal aortic aneurysm. He remains asymptomatic. Plan: No surgical interventions are needed at this time. Continue ongoing risk factor modifications. Patient to follow-up in 1 year for re-evaluation with CTA of abdomen pelvis. Assessment & Plan (02/28/2021 10:46 AM IMPROVEMENT LEADER): CT scan shows 4.3 cm fusiform infrarenal abdominal aortic aneurysm. This does not warrant further intervention and or surgical repair currently. Recommend yearly CT surveillance and follow-up at that time. Assessment & Plan (02/14/2021 9:28 AM IMPROVEMENT LEADER): On screening ultrasound patient was found to have a 5.1 cm fusiform infrarenal abdominal aortic aneurysm. Will follow up with CT scan evaluation. Patient to follow-up in 2 weeks. Immunizations Immunization Administration Dates Next Due Influenza, Quad, Adjuvantate d, Intramuscular 12/10/2020 Pfizer SARS-CoV-2 Monovalent Vaccination (12+ Yrs) PURPLE 12/12/2020,05/27/2020,05/06/2020 Surgical History Surgery Date Site/Laterality Comments INGUINAL HERNIA REPAIR Bilateral KNEE SURGERY Right BLADDER TUMOR EXCISION 03/09/2014 - 03/08/2015 COLONOSCOPY CYSTOSCOPY 03/09/2018 - 03/08/2019 CYSTOSCOPY 03/09/2021 - 03/08/2022 ENDOSCOPIC AORTIC REPAIR 03/30/2023 N/A PEVAR Medical History Medical History Date Comments Hyperlipemia Vitamin D deficiency AAA (abdominal aortic aneurysm) Microalbuminuria Hypertension Former smoker BPH (benign prostatic hyperplasia) weakened stream Arthritis Obesity Wears glasses Snores Family History Medical History Relation Name Comments Stomach cancer Father Pulmonary embolism Mother Relation Name Status Comments Father Mother Social History Tobacco Use Types Packs/Day Years Used Date Smoking Tobacco: Former Cigarettes Q uit: 11/20/2020 Tobacco Cessation:Counseling Given: Not Answered [employer] Answer Date Recorded In the past 12 months has th e [employer], gas, oil, or water [employer] threatened to shut off services in your home? No 03/31/2023 Social Connection and Isolat ion Panel [NHANES] Answer Date Recorded In a typical week, how many times do you talk on the phone with family, friends, or neighbors? More than three times a week 03/31/2023 How often do you get togethe r with friends or relatives? More than three times a week 03/31/2023 How often do you attend [facility] or spiritism services? Never 03/31/2023 Do you belong to any clubs o r organizations such as pentecostalism groups, unions, fraternal or athletic groups, or school groups? No 03/31/2023 How often do you attend meet ings of the clubs or organizations you belong to? Never 03/31/2023 Are you , , di vorced, , never , or living with a partner? 03/31/2023 AUDIT-C Answer Date Recorded Q1: How often do you have a drink containing alc ohol? 2-3 times a week 03/18/2023 Q2: How many drinks containi ng alcohol do you have on a typical day when you are drinking? 3 or 4 03/18/2023 Q3: How often do you have si x or more drinks on one occasion? Never 03/18/2023 Overall Financial Resource Strain (CARDIA) Answe r Date Recorded How hard is it for you to pa y for the very basics like food, housing, medical care, and heating? Not hard at all 03/31/2023 Hunger Vital Sign Answer Date Recorded Within the past 12 months, y ou worried that your food would run out before you got the money to buy more. Never true 03/31/19 24 Within the past 12 months, t he food you bought just didn't last and you didn't have money to get more. Never true 03/31/2023 PRAPARE - Transportation Answer Date Re corded In the past 12 months, has l ack of transportation kept you from medical appointments or from getting medications? No 03/10 In the past 12 months, has l ack of transportation kept you from meetings, work, or from getting things needed for daily living? No 03/31/2023 Housing Stability Vital Sign Answer Dani e Recorded In the last 12 months, was t here a time when you were not able to pay the mortgage or rent on time? No 03/31/2023 In the last 12 months, how many places have you lived? 1 03/31/2023 In the last 12 months, was t here a time when you did not have a steady place to sleep or slept in a assisted (including now)? No 03/31/2023 Personal Safety Answer Date Recorded Have you ever been in or are you currently in a harmful physical or emotional relationship or is someone making you feel afraid or unsafe? Denies 04/02/2023 Sex and Gender Information Value Date Recorded Sex Assigned at Not on file Legal Sex Male 3:57 PM IMPROVEMENT LEADER Gender Identity Male 03/19/2021 3:16 PM IMPROVEMENT LEADER Sexual Orientation Straight 03/19/2021 3: 16 PM IMPROVEMENT LEADER Obstetrics History Last Filed Vital Signs Vital Sign Reading Time Taken Comments Blood Pressure 137/74 09/02/2023 9:20 AM CDT Pulse 60 09/02/2023 9:20 AM CDT Temperature 36.8 C (98.3 F) 04/02/2023 12:24 PM IMPROVEMENT LEADER Respiratory Rate 18 04/02/2023 4:10 PM IMPROVEMENT LEADER Oxygen Saturation 93% 04/02/2023 4:15 PM IMPROVEMENT LEADER Inhaled Oxygen Concentration - - Weight 108 kg (238 lb) 09/02/2023 9:20 AM CDT Height 180.3 cm (5' 11 ) 09/02/2023 9:20 AM CDT Body Mass Index 33.19 09/02/2023 9:20 AM CDT Plan of Treatment Health Maintenance Due Date Last Done Comments Albumin Creatinine Ratio, Urine 1953 Colon Cancer Screening-Colonoscopy 1955 Depression Screening 1955 Hemoglobin A1C 1953 Hepatitis C Screening 1955 Dilated Eye Exam 1953 Foot Exam 1953 DTaP/Tdap/Td Vaccine (1 - Tdap) 1964 Hepatitis B Screening 10/25/1971 Pneumococcal vaccine 65+ (1 of 2 - PCV) 1972 Zoster Vaccine (1 of 2) 10/25/2003 Well Visit 65+ 2018 Covid-19 Vaccine (4 - 2023-2 5 season) 2023 12/12/2020, 05/27/2020, 05/06/2020 Influenza Vaccine (#1) 2023 12/10/2020 Lipid Panel 03/23/2024 03/23/2023, 03/09, 11/10/2019 Fall Risk Assessment 03/31/2024 03/31/2023 eGFR 04/02/2024 04/02/2023, 03/10, 03/18/2023 Abdominal Aortic Aneurysm (A AA) Screen Completed 09/02/2023, 08/17/2023, 05/22/2023, Additional history exists Medical Devices Implanted Type Area Joint Terminal Attack Controller Device Identifier Shelf Expiration Date Model / Serial / Lot Mesh Mesh Bilateral: Inguinal [employer] Excluder 14.5mm 32mm 14cm 6.5cm Conformable Active Control Trunk [id number] - [id number] - [id number] Implanted:Qty: 1 on 03/30/2023 by Shamar Dumont MD at [facility] N/A: Aorta [employer] [id number] 01/07/2026 [id number] / [id number] / [employer] Device Clsr Perclose Prostyle Sut-Mediatd Closure-Repair Sys 35924-51 - [id number] Implanted:Qty: 1 on 03/30/2023 by Shamar Dumont MD at [facility] Left: Groin [employer] 09/05/2024 [id number] / / [id number] [employer] Device Clsr Perclose Prostyle Sut-Mediatd Closure-Repair Sys 96033-52 - [id number] Implanted:Qty: 1 on 03/30/2023 by Shamar Dumont MD at [facility] Left: Groin [employer] 10/06/2024 [id number] / / [id number] [employer] Device Clsr Perclose Prostyle Sut-Mediatd Closure-Repair Sys 37812-51 - [id number] Implanted:Qty: 2 on 03/30/2023 by Shamar Dumont MD at [facility] Right: Groin [employer] 11/07/2023 [id number] / / [id number] [employer] Device Clsr Perclose Prostyle Sut-Mediatd Closure-Repair Sys 32185-83 - [id number] Implanted:Qty: 1 on 03/30/2023 by Shamar Dumont MD at [facility] Right: Groin [employer] 12/06/2024 [id number] / / [id number] [employer] Excluder 23mm 18.5-21.5mm 12cm Stent Abrasion Resistant [id number] - [id number] - [id number] Implanted:Qty: 1 on 03/30/2023 by Shamar Dumont MD at [facility] Left: Iliac [employer] [id number] 11/09/2025 [id number] / [id number] / [employer] Excluder 23mm 18.5-21.5mm 10cm Stent Abrasion Resistant [id number] - [id number] - [id number] Implanted:Qty: 1 on 03/30/2023 by Shamar Dumont MD at [facility] Right: Iliac [employer] [id number] 01/07/2026 [id number] / [id number] / Procedures Procedure Name Priority Date/Time Associated Diagnosis Comments CTA ABDOMEN PELVIS W WO CONTRAST Schedule Routine, Read Routine (OP Routine) 08/17/2023 9:58 AM CDT Aftercare following surgery of the circulatory system EGFR STAT 04/02/2023 12:55 PM IMPROVEMENT LEADER POCT LIPID PANEL Routine 03/23/2023 2:24 PM IMPROVEMENT LEADER Mixed diabetic hyperlipidemia associated with type 2 diabetes mellitus (HCC) from Last 3 Months or Most Recently Relevant to Health Maintenance Results * CTA Abdomen Pelvis (08/17/2023 9:58 AM CDT) Anatomical Region Laterality Modality Body N/A Computed Tomogra phy 08/17/2023 5:07 PM CDT Narrative 08/17/2023 5:39 PM CDT EXAM DESCRIPTION: CTA ABDOMEN PELVIS REASON FOR STUDY: AAA, post repair, PEVAR 03/30/23 Patient is status post repair of a 5.1 cm infrarenal abdominal aortic aneurysms. Patient continues to recover well. He remains asymptomatic. CTA of abdomen and pelvis performed on 05/14/2023 reveals a patent endograft repair with a small type 2 endoleak. [place] aneurysms sac is stable measuring 5.1 cm. Plan: No surgical interventions indicated at this time as aneurysms sac size remains stable in size. Discussed with the patient continued monitoring. -patient to follow-up in 3 months for re-evaluation with CT of abdomen and pelvis. Denies ca TECHNIQUE: CTA scan of the abdomen and pelvis performed without and with intravenous and without oral contrast using helical scanning technique with dynamic intravenous contrast injection. Precontrast, arterial, and portal venous phase images of the abdomen and pelvis were acquired. Images reviewed with lung, soft tissue and bone windows. Reconstructed coronal and sagittal MPR images reviewed. All images stored on PACS. 3D MIP images rendered on scanning unit and reviewed at time of interpretation. Automated exposure control was used as a dose optimization technique for this examination. CONTRAST TYPE/DOSE: 100mL of IOVERSOL 350 MG IODINE/ML INTRAVENOUS SYRINGE injected via intravenous COMPARISON: CT abdomen pelvis 05/14/2023 FINDINGS: VASCULATURE: No dissection, intramural hematoma, rupture, or penetrating atherosclerotic ulcer. There is an infrarenal abdominal aortic aneurysm status post aorto bi-iliac stent graft repair. Proximal landing sites of the graft are just below the level of the renal arteries, unchanged. Distal landing sites are in the distal common iliac arteries bilaterally. No definite evidence of stent migration. The duckwater aneurysmal sac measures 5.5 x 5.3 cm (AP X transverse), previously 5.4 x 5.3 cm on 05/14/2023 and 5.3 x 5.1 cm on 03/04/2023. Again noted is a small endoleak near the takeoff of the left internal iliac artery graft, which is near the inferior mesenteric artery as well (series 5, image 141). The left common iliac artery measures up to 2.4 cm, which is unchanged. The right common iliac artery measures up to 2.2 cm, which is unchanged. CELIAC TRUNK: No flow limiting stenosis, dissection, or aneurysm. SUPERIOR MESENTERIC ARTERY: No flow limiting stenosis, dissection, or aneurysm. RIGHT RENAL ARTERY: No flow limiting stenosis, dissection, or aneurysm. LEFT RENAL ARTERY: No flow limiting stenosis, dissection, or aneurysm. INFERIOR MESENTERIC ARTERY: No flow limiting stenosis, dissection, or aneurysm. LOWER CHEST: There is scarring in the lung bases bilaterally. There is mild thickening of the distal esophagus. Recommend correlation for signs of esophagitis or chronic reflux. Aortic valvular calcifications are noted. LIVER: Normal size. No identified cystic or solid masses. GALLBLADDER: No stones, wall thickening or pericholecystic fluid BILE DUCTS: No intrahepatic or extrahepatic ductal dilatation. SPLEEN: Normal size. No focal lesions. PANCREAS: No identified cystic or solid masses. No significant calcifications. No adjacent inflammation or peripancreatic fluid collections. Pancreatic duct not dilated. ADRENALS: Normal. KIDNEYS/URINARY TRACT: No identified significant cystic or solid masses. There is a 3 mm nonobstructing calculus in the right kidney.. No hydronephrosis or hydroureter. Symmetric enhancement. Normal bladder. GI: No dilated bowel loops. No obvious wall thickening. Normal appendix. There is colonic diverticulosis without diverticulitis. PERITONEUM: No ascites or free air. RETROPERITONEUM: There is an unchanged 12 mm right external iliac chain lymph node on series 11, image 127. REPRODUCTIVE: No significant abnormality. MUSCULOSKELETAL: No suspicious osseous lesion. There is diffuse idiopathic skeletal hyperostosis. There is unchanged grade 1 anterolisthesis of L4 on L5 with bilateral L4 pars defects. There is unchanged trace retrolisthesis of L5 on S1. OTHER: There is a fat containing right inguinal hernia. IMPRESSION: 1. Infrarenal abdominal aortic aneurysm status post aorto bi-iliac stent graft repair. The duckwater aneurysmal sac measures 5.5 x 5.3 cm, previously 5.4 x 5.3 cm on 05/14/2023. 2. Unchanged small endoleak near the origin of the inferior mesenteric artery and takeoff of the left internal iliac artery graft. 3. Unchanged 12 mm right external iliac chain lymph node. 4. Mild thickening of the distal esophagus. Recommend correlation for signs of esophagitis or chronic reflux. 5. Additional findings as above. THIS IS AN ELECTRONICALLY VERIFIED FINAL REPORT 08/17/2023 5:39 PM - Electronically signed by Jung Espinoza M.D. AM T: Report ID: [id number] Reading Location: [id number] Procedure Note Jung Espinoza MD - 08/17/2023 EXAM DESCRIPTION: CTA ABDOMEN PELVIS REASON FOR STUDY: AAA, post repair, PEVAR 03/30/23 Patient is status post repair of a 5.1 cm infrarenal abdominal aortic aneurysms. Patient continues to recover well. He remains asymptomatic.CTA of abdomen and pelvis performed on 05/14/2023 reveals a patent endograft repair with a small type 2 endoleak. [place] aneurysms sac is stable measuring 5.1 cm. Plan: No surgical interventions indicated at this timeas aneurysms sac size remains stable in size. Discussed with the patient continued monitoring. -patient to follow-up in 3 months for re-evaluation with CT of abdomen and pelvis. Denies ca TECHNIQUE: CTA scan of the abdomen and pelvis performed without and with intravenous and without oral contrast using helical scanning techniquewith dynamic intravenous contrast injection. Precontrast, arterial, and portal venous phase images of the abdomen and pelvis were acquired. Images reviewed with lung, soft tissue and bone windows. Reconstructed coronaland sagittal MPR images reviewed. All images stored on PACS. 3D MIP images rendered on scanning unit and reviewed at time of interpretation.Automated exposure control was used as a dose optimization technique for this examination. CONTRAST TYPE/DOSE: 100mL of IOVERSOL 350 MG IODINE/ML INTRAVENOUSSYRINGE injected via intravenous COMPARISON: CT abdomen pelvis 05/14/2023 FINDINGS: VASCULATURE: No dissection, intramural hematoma, rupture, or penetrating atherosclerotic ulcer. There is an infrarenal abdominal aortic aneurysm status post aortobi-iliac stent graft repair. Proximal landing sites of the graft are just belowthe level of the renal arteries, unchanged. Distal landing sites are in the distal common iliac arteries bilaterally. No definite evidence of stent migration. The duckwater aneurysmal sac measures 5.5 x 5.3 cm (AP Xtransverse), previously 5.4 x 5.3 cm on 05/14/2023 and 5.3 x 5.1 cm on 03/04/2023.Again noted is a small endoleak near the takeoff of the left internal iliacartery graft, which is near the inferior mesenteric artery as well (series 5,image 141). The left common iliac artery measures up to 2.4 cm, which isunchanged. The right common iliac artery measures up to 2.2 cm, which is unchanged. CELIAC TRUNK: No flow limiting stenosis, dissection, or aneurysm. SUPERIOR MESENTERIC ARTERY: No flow limiting stenosis, dissection, or aneurysm. RIGHT RENAL ARTERY: No flow limiting stenosis, dissection, or aneurysm. LEFT RENAL ARTERY: No flow limiting stenosis, dissection, or aneurysm. INFERIOR MESENTERIC ARTERY: No flow limiting stenosis, dissection, or aneurysm. LOWER CHEST: There is scarring in the lung bases bilaterally. There ismild thickening of the distal esophagus. Recommend correlation for signs of esophagitis or chronic reflux. Aortic valvular calcifications are noted. LIVER: Normal size. No identified cystic or solid masses. GALLBLADDER: No stones, wall thickening or pericholecystic fluid BILE DUCTS: No intrahepatic or extrahepatic ductal dilatation. SPLEEN: Normal size. No focal lesions. PANCREAS: No identified cystic or solid masses. No significant calcifications. No adjacent inflammation or peripancreatic fluidcollections. Pancreatic duct not dilated. ADRENALS: Normal. KIDNEYS/URINARY TRACT: No identified significant cystic or solid masses. There is a 3 mm nonobstructing calculus in the right kidney.. No hydronephrosis or hydroureter. Symmetric enhancement. Normal bladder. GI: No dilated bowel loops. No obvious wall thickening. Normalappendix. There is colonic diverticulosis without diverticulitis. PERITONEUM: No ascites or free air. RETROPERITONEUM: There is an unchanged 12 mm right external iliac chain lymph node on series 11, image 127. REPRODUCTIVE: No significant abnormality. MUSCULOSKELETAL: No suspicious osseous lesion. There is diffuseidiopathic skeletal hyperostosis. There is unchanged grade 1 anterolisthesis of L4on L5 with bilateral L4 pars defects. There is unchanged trace retrolisthesisof L5 on S1. OTHER: There is a fat containing right inguinal hernia. IMPRESSION: 1. Infrarenal abdominal aortic aneurysm status post aorto bi-iliac stent graft repair. The duckwater aneurysmal sac measures 5.5 x 5.3cm, previously 5.4 x 5.3 cm on 05/14/2023. 2. Unchanged small endoleak near the origin of the inferior mesentericartery and takeoff of the left internal iliac artery graft. 3. Unchanged 12 mm right external iliac chain lymph node. 4. Mild thickening of the distal esophagus. Recommend correlation forsigns of esophagitis or chronic reflux. 5. Additional findings as above. THIS IS AN ELECTRONICALLY VERIFIED FINAL REPORT 08/17/2023 5:39 PM - Electronically signed by Jung Espinoza M.D. AM T: Report ID: [id number] Reading Location: [place] [id number] Rosa Hamilton NP IMG CT PROCEDURES Final R esult * eGFR (04/02/2023 12:55 PM IMPROVEMENT LEADER) eGFR 77 mL/min/1. 73 m2 [facility] Comment: Interpretive Data Reference Interval Normal >/= 90 mL/min/1.73m2 Mildly decreased* 60 - 89 mL/min/1.73m2 Mildly to moderately decreased 45 - 59 mL/min/1.73m2 Moderately to severely decreased 30 - 44 mL/min/1.73m2 Severely decreased 15 - 29 mL/min/1.73m2 Kidney Failure < 15 mL/min/1.73m2 *Relative to young adult level Estimated glomerular filtration rate is determined by the 2020 CKD-EPI equation recommended by the National [employer] (A Unifying Approach to GFR Estimation: Recommendations of the NKF-ASK Task Force on Reassessing the Inclusion of Race in Diagnosing Kidney Disease, JASN 2020). The CKD-EPI equation should not be used for patients with unstable renal function and has not been validated in children and those over 70. Current interpretive data was last reviewed 2021. Blood 04/02/2023 12:5 5 PM IMPROVEMENT LEADER 04/02/2023 12:59 PM IMPROVEMENT LEADER us Keith Montes De Oca MD LAB BLOOD ORDERABLES Rachael bain Result [facility] [address] [facility] Department [place] [address] * POCT lipid panel (03/23/2023 2:24 PM IMPROVEMENT LEADER) Cholesterol, POC 111 mg/dL HDL, POC 31 mg/dL Triglycerides, POC 123 mg/dL LDL Cholesterol POC 56 mg/dL Chol/HDL Ratio, POC 3.6 Non-HDL Cholesterol, POC 81 mg/dL Cholesterol Total, POC 111 mg/dL Capillary blood 03/23/2023 2 :24 PM IMPROVEMENT LEADER Ayan Bai MD POINT OF CARE TEST ORDER RICK Final Result from Last 3 Months or Most Recently Relevant to Health Maintenance Insurance MEDICARE [employer] [place] Advance Directives For more information, please contact: [phone] * Full Code (Latest Code Status on File) Date Activated Date Inactivated Comments 03/30/2023 11:28 AM 03/31/2023 5:29 PM Care Teams Creative Assistant Relationship Specialty Start Date End Date Phi Velez MD [address] [place] [address] PCP - General Family Medicine 03/30/23 Shamar Dumont MD [address] [place] [address] Surgeon Vascular Surgery 02/24/22 Ayan Bai MD [address] [place] [address] Consulting Physician Cardiology 03/18/23
--- OUTSIDE RECORDS SUMMARY | 2024-05-17 07:25 | XMS_ITS | Referral Summary ---
Author Organization [facility] Address [address] [place] [address] Care Team Providers Care Operational Test Mechanic Name Role Phone Shamar Dumont MD Unavailable [phone] Ayan Bai MD Unavailable [phone] Phi Velez MD Primary Care Provider + [phone] Allergies Active Allergy Reactions Criticality Noted Date [...] 05/05/2023 Assessment & Plan (05/05/2023 10:49 AM SETTER COLD ROLLING MACHINE): Status post percutaneous EVAR. Patient doing very [...] repair with a small type 2 endoleak. [place] aneurysms sac is stable measuring 5.1 cm. [...] 02/27/2022 Assessment & Plan (03/11/2023 10:10 AM SETTER COLD ROLLING MACHINE): Diabetes type 2 chronic and controlled. Continue current medical management per PCP. Assessment & Plan (02/27/2022 2:09 PM SETTER COLD ROLLING MACHINE): Impression: Newly diagnosed type 2 diabetes. Patient [...] Lipitor. Assessment & Plan (03/11/2023 10:10 AM SETTER COLD ROLLING MACHINE): Hyperlipidemia chronic and controlled. Continue Lipitor. Assessment & Plan (02/27/2022 2:09 PM SETTER COLD ROLLING MACHINE): Impression: Chronic hyperlipidemia, controlled with statin therapy. Plan: Continue statin therapy as per primary care provider. Assessment & Plan (02/28/2021 10:47 AM SETTER COLD ROLLING MACHINE): Hyperlipidemia chronic and stable. Continue Lipitor. Assessment & Plan (02/14/2021 9:28 AM SETTER COLD ROLLING MACHINE): Hyperlipidemia chronic and stable. Continue Lipitor. 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 Patient was a good endovascular candidate and I have recommended proceeding with percutaneous EVAR. The procedure indications and all associated risks have been explained. Patient understands and agrees to proceed. Assessment & Plan (02/27/2022 2:10 PM SETTER COLD ROLLING MACHINE): Impression: Patient has a stable 4.4 cm infrarenal abdominal aortic aneurysm. He remains asymptomatic. Plan: No surgical interventions are needed at this time. Continue ongoing risk factor modifications. Patient to follow-up in 1 year for re-evaluation with CTA of abdomen pelvis. Assessment & Plan (02/28/2021 10:46 AM SETTER COLD ROLLING MACHINE): CT scan shows 4.3 cm fusiform infrarenal abdominal aortic aneurysm. This does not warrant further intervention and or surgical repair currently. Recommend yearly CT surveillance and follow-up at that time. Assessment & Plan (02/14/2021 9:28 AM SETTER COLD ROLLING MACHINE): On screening ultrasound patient was found to have a 5.1 cm fusiform infrarenal abdominal aortic aneurysm. Will follow up with CT scan evaluation. Patient to follow-up in 2 weeks. Immunizations Immunization Administration Dates Next Due Influenza, Quad, Adjuvantate d, Intramuscular 12/10/2020 Pfizer SARS-CoV-2 Monovalent Vaccination (12+ Yrs) PURPLE 12/12/2020,05/27/2020,05/06/2020 Social History Tobacco Use Types Packs/Day Years Used Date Smoking Tobacco: Former Cigarettes Q uit: 11/20/2020 Tobacco Cessation:Counseling Given: Not Answered [facility] Utilities Answer Date Recorded In the past 12 months has [employer], [employer], oil, or water [employer] threatened to shut off services in your [...] week 03/31/2023 How often do you attend [facility] or baptist services? Never 03/31/2023 Do you belong to any clubs o r organizations such as baptism groups, unions, fraternal or athletic groups, or [...] place to sleep or slept in a halfway (including now)? No 03/31/2023 Personal Safety Answer Date Recorded Have you ever been in or are you currently in a harmful physical or emotional relationship or is someone making you feel afraid or unsafe? Denies 04/02/2023 Sex and Gender Information Value Date Recorded Sex Assigned at Not on file Legal Sex Male 3:57 PM SETTER COLD ROLLING MACHINE Gender Identity Male 03/19/2021 3:16 PM SETTER COLD ROLLING MACHINE Sexual Orientation Straight 03/19/2021 3: 16 PM SETTER COLD ROLLING MACHINE Last Filed Vital Signs Vital Sign Reading Time Taken Comments Blood Pressure 137/74 09/02/2023 9:20 AM CDT Pulse 60 09/02/2023 9:20 AM CDT Temperature 36.8 C (98.3 F) 04/02/2023 12:24 PM SETTER COLD ROLLING MACHINE Respiratory Rate 18 04/02/2023 4:10 PM SETTER COLD ROLLING MACHINE Oxygen Saturation 93% 04/02/2023 4:15 PM SETTER COLD ROLLING MACHINE Inhaled Oxygen Concentration - - Weight 108 kg (238 lb) 09/02/2023 9:20 AM CDT Height 180.3 cm (5' 11 ) 09/02/2023 9:20 AM CDT Body Mass Index 33.19 09/02/2023 9:20 AM CDT Plan of Treatment Not on file Medical Devices Implanted Type Area Email Manager Device Identifier Shelf Expiration Date Model / Serial / Lot Mesh Mesh Bilateral: Inguinal [employer] Excluder 14.5mm 32mm 14cm 6.5cm Conformable Active Control Trunk [id number] - [id number] - [id number] Implanted:Qty: 1 on 03/30/2023 by Shamar Dumont MD at [facility] N/A: Aorta [employer] [id number] 01/07/2026 [id number] / [id number] / [employer] V[employer] Device Clsr Perclose Prostyle Sut-Mediatd Closure-Repair Sys 55592-51 - [id number] Implanted:Qty: 1 on 03/30/2023 by Shamar Dumont MD at [facility] Left: Groin [employer] 09/05/2024 [id number] / / [id number] [employer] V[employer] Device Clsr Perclose Prostyle Sut-Mediatd Closure-Repair Sys 83210-08 - [id number] Implanted:Qty: 1 on 03/30/2023 by Shamar Dumont MD at [facility] Left: Groin [employer] 10/06/2024 [id number] / / [id number] [employer] V[employer] Device Clsr Perclose Prostyle Sut-Mediatd Closure-Repair Sys 36704-65 - [id number] Implanted:Qty: 2 on 03/30/2023 by Shamar Dumont MD at [facility] Right: Groin [employer] 11/07/2023 [id number] / / [id number] [employer] V[employer] Device Clsr Perclose Prostyle Sut-Mediatd Closure-Repair Sys 08874-86 - [id number] Implanted:Qty: 1 on 03/30/2023 by Shamar Dumont MD at [facility] Right: Groin [employer] 12/06/2024 [id number] / / [id number] [employer] Excluder 23mm 18.5-21.5mm 12cm Stent Abrasion Resistant [id number] - [id number] - [id number] Implanted:Qty: 1 on 03/30/2023 by Shamar Dumont MD at [facility] Left: Iliac [employer] [id number] 11/09/2025 [id number] / [id number] / [employer] Excluder 23mm 18.5-21.5mm 10cm Stent Abrasion Resistant [id number] - [id number] - [id number] Implanted:Qty: 1 on 03/30/2023 by Shamar Dumont MD at [facility] Right: Iliac [employer] [id number] 01/07/2026 [id number] / [id number] / Procedures Procedure Name Priority Date/Time Associated Diagnosis Comments CTA ABDOMEN PELVIS W WO CONTRAST Schedule Routine, Read Routine (OP Routine) 08/17/2023 9:58 AM CDT Aftercare following surgery of the circulatory system EGFR STAT 04/02/2023 12:55 PM SETTER COLD ROLLING MACHINE POCT LIPID PANEL Routine 03/23/2023 2:24 PM SETTER COLD ROLLING MACHINE Mixed diabetic hyperlipidemia associated with type 2 [...] repair with a small type 2 endoleak. [place] aneurysms sac is stable measuring 5.1 cm. [...] No definite evidence of stent migration. The [place] aneurysmal sac measures 5.5 x 5.3 cm [...] post aorto bi-iliac stent graft repair. The [place] aneurysmal sac measures 5.5 x 5.3 cm, [...] - Electronically signed by Jung Espinoza M.D. T: Report ID: [id number] Reading Location: [place] [address] Procedure Note Jung Espinoza MD - 08/17/2023 EXAM DESCRIPTION: CTA ABDOMEN PELVIS REASON FOR STUDY: AAA, post repair, PEVAR 03/30/23 Patient is status post repair of a 5.1 cm infrarenal abdominal aortic aneurysms. Patient continues to recover well. He remains asymptomatic.CTA of abdomen and pelvis performed on 05/14/2023 reveals a patent endograft repair with a small type 2 endoleak. [place] aneurysms sac is stable measuring 5.1 cm. [...] No definite evidence of stent migration. The [place] aneurysmal sac measures 5.5 x 5.3 cm [...] post aorto bi-iliac stent graft repair. The [place] aneurysmal sac measures 5.5 x 5.3cm, previously [...] Jung Espinoza M.D. AM T: Report ID: [id number] Reading Location: [place] [address] Rosa Hamilton NP IMG CT PROCEDURES Final R esult * eGFR (04/02/2023 12:55 PM SETTER COLD ROLLING MACHINE) eGFR 77 mL/min/1. 73 m2 AMAURY WINKLER [...] reviewed 2021. Blood 04/02/2023 12:5 5 PM SETTER COLD ROLLING MACHINE 04/02/2023 12:59 PM SETTER COLD ROLLING MACHINE Keith Montes De Oca MD LAB BLOOD ORDERABLES Rachael bain Result [facility] [address] [facility] Department [place] [address] * POCT lipid panel (03/23/2023 2:24 PM SETTER COLD ROLLING MACHINE) Cholesterol, POC 111 mg/dL HDL, POC 31 mg/dL Triglycerides, POC 123 mg/dL LDL Cholesterol POC 56 mg/dL Chol/HDL Ratio, POC 3.6 Non-HDL Cholesterol, POC 81 mg/dL Cholesterol Total, POC 111 mg/dL Capillary blood 03/23/2023 2 :24 PM SETTER COLD ROLLING MACHINE Ayan Bai MD POINT OF CARE TEST ORDER RICK Final Result from Last 3 Months or Most Recently Relevant to Health Maintenance Insurance MEDICARE [facility] [place] Advance Directives For more information, please contact: [phone] * Full Code (Latest Code Status on File) Date Activated Date Inactivated Comments 03/30/2023 11:28 AM 03/31/2023 5:29 PM Care Teams Operational Test Mechanic Relationship Specialty Start Date End Date Phi Velez MD [address] [place] [address] PCP - General Family Medicine 03/30/23 Shamar Dumont MD [address] [place] [address] Surgeon Vascular Surgery 02/24/22 Ayan Bai MD [address] [place] [address] Consulting Physician Cardiology 03/18/23
--- OUTSIDE RECORDS SUMMARY | 2024-05-17 07:25 | XMS_ITS ---
Author Organization [facility] Address [address] [place] [address] Care Team Providers Care Angiographer Name Role Phone Shamar Dumont MD Unavailable [phone] Ayan Bai MD Unavailable [phone] Phi Velez MD Primary Care Provider [phone] Active Problems Problem Noted Date Diagnosed Date Aftercare following surgery of the circulatory s ystem 05/05/2023 Assessment & Plan (05/05/2023 10:49 AM FIREARMS EXPERT): Status post percutaneous EVAR. Patient doing very [...] repair with a small type 2 endoleak. [place] aneurysms sac is stable measuring 5.1 cm. [...] 02/27/2022 Assessment & Plan (03/11/2023 10:10 AM FIREARMS EXPERT): Diabetes type 2 chronic and controlled. Continue current medical management per PCP. Assessment & Plan (02/27/2022 2:09 PM FIREARMS EXPERT): Impression: Newly diagnosed type 2 diabetes. Patient [...] Lipitor. Assessment & Plan (03/11/2023 10:10 AM FIREARMS EXPERT): Hyperlipidemia chronic and controlled. Continue Lipitor. Assessment & Plan (02/27/2022 2:09 PM FIREARMS EXPERT): Impression: Chronic hyperlipidemia, controlled with statin therapy. Plan: Continue statin therapy as per primary care provider. Assessment & Plan (02/28/2021 10:47 AM FIREARMS EXPERT): Hyperlipidemia chronic and stable. Continue Lipitor. Assessment & Plan (02/14/2021 9:28 AM FIREARMS EXPERT): Hyperlipidemia chronic and stable. Continue Lipitor. 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 Past Treatment and Therapy Plans No past plan information found. Lifetime Dose Tracking * Chemical Lifetime Dose Automatic Entry Manual Entr y Fluoro Time 7.1 minutes 7.1 minutes 0 minutes Air kerma at the reference point (Ka,r) 724.7 mGy 7 24.7 mGy 0 mGy DLP 3,837 mGycm 3,837 mGycm 0 mGycm Resolved Problems Problem Noted Date Diagnosed Date Resolved Date Abdominal aortic aneurysm without rupture 02/14/2021 05/22/2023 Assessment & Plan (03/11/2023 10:10 AM FIREARMS EXPERT): Recent CT scan shows increased growth now measuring 5.1 cm. Patient was a good endovascular candidate and I have recommended proceeding with percutaneous EVAR. The procedure indications and all associated risks have been explained. Patient understands and agrees to proceed. Assessment & Plan (02/27/2022 2:10 PM FIREARMS EXPERT): Impression: Patient has a stable 4.4 cm infrarenal abdominal aortic aneurysm. He remains asymptomatic. Plan: No surgical interventions are needed at this time. Continue ongoing risk factor modifications. Patient to follow-up in 1 year for re-evaluation with CTA of abdomen pelvis. Assessment & Plan (02/28/2021 10:46 AM FIREARMS EXPERT): CT scan shows 4.3 cm fusiform infrarenal abdominal aortic aneurysm. This does not warrant further intervention and or surgical repair currently. Recommend yearly CT surveillance and follow-up at that time. Assessment & Plan (02/14/2021 9:28 AM FIREARMS EXPERT): On screening ultrasound patient was found to have a 5.1 cm fusiform infrarenal abdominal aortic aneurysm. Will follow up with CT scan evaluation. Patient to follow-up in 2 weeks.
[2024-05-17 08:04] LABS: Hematocrit 45.1 % (42.0-52.0); Hemoglobin 15.8 g/dL (14.0-18.0); Immature Platelet Fraction Pct 8.6 % (0.9-11.2); Mean Corpuscular Hemoglobin 32.6 pg (26-34); Mean Platelet Volume 11.3 fl (7.4-10.4); Platelet Count Result 156 k/mm3 (150-375); Red Blood Count 4.85 M/mm3 (4.6-6.20); Red Cell Distribution Width 12.5 % (11.5-14.5); White Blood Count 7.7 K/mm3 (4.5-10.0)
[2024-05-17 08:14] LABS: Alanine Aminotransferase 37 U/L (6-50); Albumin Level 4.4 g/dL (3.5-5.1); Alkaline Phosphatase 65 U/L (38-126); Anion Gap 10 mmol/L (4-12); Aspartate Amino Transferase 20 U/L (17-59); Bilirubin,Total 1.4 mg/dL (0.2-1.3); Blood Urea Nitrogen 19 mg/dL (9-20); Calcium 9.5 mg/dL (8.4-10.2); Carbon Dioxide 30 mmol/L (22-30); Chloride 101 mmol/L (98-107); Cholesterol 115 mg/dL (0-200); Estimated Glomerular Filt Rate > 60; Glucose 150 mg/dL (65-110); HDL Direct 36 mg/dL; Potassium 4.4 mmol/L (3.4-5.0); Sodium 141 mmol/L (137-145); Triglycerides 81 mg/dL (<150)
[2024-05-17 08:25] LABS: LDL Cholesterol Direct 58 mg/dL
[2024-05-17 08:31] LABS: Hemoglobin A1C 7.2 % (<5.7)
[2024-05-17 08:43] LABS: Prostate Specific Antigen 2.9 ng/mL (< OR = 4.0)
[2024-05-17 09:42] LABS: Creatinine Urine 78.1 mg/dL
[2024-05-17 09:46] LABS: MALB Creatinine Ratio 9.5 mg/g (0-30); Microalbumin Urine Random 7.4 mg/L (0-16.7)
[2024-05-17 10:06] LABS: Vitamin D 25 Hydroxy 65.8 ng/mL
== END 2024-05-17 07:19 | disposition home or self-care (01) ==
LOC: ANHLAB 07:21
PROVIDERS: PCP Family Medicine; Visit Provider Nurse Practitioner Family
DX: R39.198 Other difficulties with micturition (principal); N39.43 Post-void dribbling; R80.9 Proteinuria, unspecified; I10 Essential (primary) hypertension; E78.2 Mixed hyperlipidemia; E11.9 Type 2 diabetes mellitus without complications; Z12.5 Encounter for screening for malignant neoplasm of prostate; Z68.34 Body mass index [BMI] 34.0-34.9, adult; Z13.29 Encounter for screening for other suspected endocrine disorder
CPT/HCPCS: 36415; 80053; 80061; 82043; 82306; 83036; 84153; 84443; 85027; 85055; G0103

== ENCOUNTER 2024-07-21 00:24 | Day surgery (SDC) | payer MEDICARE, SELFPAY ==
[2024-07-13 12:25] VITALS: BMI 33.5
--- OUTSIDE RECORDS SUMMARY | 2024-07-21 00:27 | XMS_ITS | Referral Summary ---
Author Organization [facility] Address [address] [place] [address] Care Team Providers Care Returns Clerk Name Role Phone Shamar Dumont MD Unavailable [phone] Ayan Bai MD Unavailable [phone] Phi Velez MD Primary Care Provider [phone] Allergies Active Allergy Reactions Criticality Noted Date [...] 05/05/2023 Assessment & Plan (05/05/2023 10:49 AM MISSION SUPPORT SPECIALIST): Status post percutaneous EVAR. Patient doing very [...] repair with a small type 2 endoleak. [place] aneurysms sac is stable measuring 5.1 cm. [...] 02/27/2022 Assessment & Plan (03/11/2023 10:10 AM MISSION SUPPORT SPECIALIST): Diabetes type 2 chronic and controlled. Continue current medical management per PCP. Assessment & Plan (02/27/2022 2:09 PM MISSION SUPPORT SPECIALIST): Impression: Newly diagnosed type 2 diabetes. Patient [...] Lipitor. Assessment & Plan (03/11/2023 10:10 AM MISSION SUPPORT SPECIALIST): Hyperlipidemia chronic and controlled. Continue Lipitor. Assessment & Plan (02/27/2022 2:09 PM MISSION SUPPORT SPECIALIST): Impression: Chronic hyperlipidemia, controlled with statin therapy. Plan: Continue statin therapy as per primary care provider. Assessment & Plan (02/28/2021 10:47 AM MISSION SUPPORT SPECIALIST): Hyperlipidemia chronic and stable. Continue Lipitor. Assessment & Plan (02/14/2021 9:28 AM MISSION SUPPORT SPECIALIST): Hyperlipidemia chronic and stable. Continue Lipitor. 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 Patient was a good endovascular candidate and I have recommended proceeding with percutaneous EVAR. The procedure indications and all associated risks have been explained. Patient understands and agrees to proceed. Assessment & Plan (02/27/2022 2:10 PM MISSION SUPPORT SPECIALIST): Impression: Patient has a stable 4.4 cm infrarenal abdominal aortic aneurysm. He remains asymptomatic. Plan: No surgical interventions are needed at this time. Continue ongoing risk factor modifications. Patient to follow-up in 1 year for re-evaluation with CTA of abdomen pelvis. Assessment & Plan (02/28/2021 10:46 AM MISSION SUPPORT SPECIALIST): CT scan shows 4.3 cm fusiform infrarenal abdominal aortic aneurysm. This does not warrant further intervention and or surgical repair currently. Recommend yearly CT surveillance and follow-up at that time. Assessment & Plan (02/14/2021 9:28 AM MISSION SUPPORT SPECIALIST): On screening ultrasound patient was found to [...] uit: 11/20/2020 Tobacco Cessation:Counseling Given: Not Answered [facility] Utilities Answer Date Recorded In the past 12 months has [employer], [employer], oil, or water [employer] threatened to shut off services in your [...] week 03/31/2023 How often do you attend [facility] center or pentecostal services? Never 03/31/2023 Do you belong to any clubs o r organizations such as zoroastrian groups, unions, fraternal or athletic groups, or [...] place to sleep or slept in a fpc (including now)? No 03/31/2023 Personal Safety Answer Date Recorded Have you ever been in or are you currently in a harmful physical or emotional relationship or is someone making you feel afraid or unsafe? Denies 04/02/2023 Sex and Gender Information Value Date Recorded Sex Assigned at Not on file Legal Sex Male 3:57 PM MISSION SUPPORT SPECIALIST Gender Identity Male 03/19/2021 3:16 PM MISSION SUPPORT SPECIALIST Sexual Orientation Straight 03/19/2021 3: 16 PM MISSION SUPPORT SPECIALIST Last Filed Vital Signs Vital Sign Reading Time Taken Comments Blood Pressure 137/74 09/02/2023 9:20 AM CDT Pulse 60 09/02/2023 9:20 AM CDT Temperature 36.8 C (98.3 F) 04/02/2023 12:24 PM MISSION SUPPORT SPECIALIST Respiratory Rate 18 04/02/2023 4:10 PM MISSION SUPPORT SPECIALIST Oxygen Saturation 93% 04/02/2023 4:15 PM MISSION SUPPORT SPECIALIST Inhaled Oxygen Concentration - - Weight 108 kg (238 lb) 09/02/2023 9:20 AM CDT Height 180.3 cm (5' 11 ) 09/02/2023 9:20 AM CDT Body Mass Index 33.19 09/02/2023 9:20 AM CDT Plan of Treatment Not on file Medical Devices Implanted Type Area Shell Shop Supervisor Device Identifier Shelf Expiration Date Model / Serial / Lot Mesh Mesh Bilateral: Inguinal [employer] Excluder 14.5mm 32mm 14cm 6.5cm Conformable Active Control Trunk [id number] - [id number] - [id number] Implanted:Qty: 1 on 03/30/2023 by Shamar Dumont MD at [facility] N/A: Aorta [employer] [id number] 01/07/2026 [id number] / [id number] / [employer] V[employer] Device Clsr Perclose Prostyle Sut-Mediatd Closure-Repair Sys 26981-79 - [id number] Implanted:Qty: 1 on 03/30/2023 by Shamar Dumont MD at [facility] Left: Groin [employer] 09/05/2024 [id number] / / [id number] [employer] V[employer] Device Clsr Perclose Prostyle Sut-Mediatd Closure-Repair Sys 17425-89 - [id number] Implanted:Qty: 1 on 03/30/2023 by Shamar Dumont MD at [facility] Left: Groin [employer] 10/06/2024 [id number] / / [id number] [employer] V[employer] Device Clsr Perclose Prostyle Sut-Mediatd Closure-Repair Sys 43631-81 - [id number] Implanted:Qty: 2 on 03/30/2023 by Shamar Dumont MD at [facility] Right: Groin [employer] 11/07/2023 [id number] / / [id number] [employer] Device Clsr Perclose Prostyle Sut-Mediatd Closure-Repair Sys 34474-18 - [id number] Implanted:Qty: 1 on 03/30/2023 by Shamar Dumont MD at [facility] Right: Groin [employer] 12/06/2024 [id number] / / [id number] [employer] Excluder 23mm 18.5-21.5mm 12cm Stent Abrasion Resistant [id number] - [id number] - [id number] Implanted:Qty: 1 on 03/30/2023 by Shamar Dumont MD at [facility] Left: Iliac [employer] [id number] 11/09/2025 [id number] / [id number] / [employer] Excluder 23mm 18.5-21.5mm 10cm Stent Abrasion Resistant [id number] - [id number] - [id number] Implanted:Qty: 1 on 03/30/2023 by Shamar Dumont MD at [facility] Right: Iliac [employer] [id number] 01/07/2026 [id number] / [id number] / Procedures Procedure Name Priority Date/Time Associated Diagnosis Comments CTA ABDOMEN PELVIS W WO CONTRAST Schedule Routine, Read Routine (OP Routine) 08/17/2023 9:58 AM CDT Aftercare following surgery of the circulatory system EGFR STAT 04/02/2023 12:55 PM MISSION SUPPORT SPECIALIST POCT LIPID PANEL Routine 03/23/2023 2:24 PM MISSION SUPPORT SPECIALIST Mixed diabetic hyperlipidemia associated with type 2 diabetes mellitus (HCC) from Last 3 Months or Most Recently Relevant to Health Maintenance Results * CTA Abdomen Pelvis (08/17/2023 9:58 AM CDT) Anatomical Region Laterality Modality Body N/A Computed Tomogra phy 08/17/2023 5:0 7 PM CDT Narrative 08/17/2023 5:39 PM CDT EXAM DESCRIPTION: CTA ABDOMEN PELVIS REASON FOR STUDY: AAA, post repair, PEVAR 03/30/23 Patient is status post repair of a 5.1 cm infrarenal abdominal aortic aneurysms. Patient continues to recover well. He remains asymptomatic. CTA of abdomen and pelvis performed on 05/14/2023 reveals a patent endograft repair with a small type 2 endoleak. [place] aneurysms sac is stable measuring 5.1 cm. [...] No definite evidence of stent migration. The [place] aneurysmal sac measures 5.5 x 5.3 cm [...] post aorto bi-iliac stent graft repair. The [place] aneurysmal sac measures 5.5 x 5.3 cm, [...] by Jung Espinoza M.D. T: Report ID: [id number] Reading Location: [place] [address] Procedure Note Jung Espinoza MD - 08/17/2023 EXAM DESCRIPTION: CTA ABDOMEN PELVIS REASON FOR STUDY: AAA, post repair, PEVAR 03/30/23 Patient is status post repair of a 5.1 cm infrarenal abdominal aortic aneurysms. Patient continues to recover well. He remains asymptomatic.CTA of abdomen and pelvis performed on 05/14/2023 reveals a patent endograft repair with a small type 2 endoleak. [place] aneurysms sac is stable measuring 5.1 cm. [...] No definite evidence of stent migration. The [place] aneurysmal sac measures 5.5 x 5.3 cm [...] post aorto bi-iliac stent graft repair. The [place] aneurysmal sac measures 5.5 x 5.3cm, previously [...] Jung Espinoza M.D. AM T: Report ID: [id number] Reading Location: [place] [address] Rosa Hamilton NP IMG CT PROCEDURES Final R esult * eGFR (04/02/2023 12:55 PM MISSION SUPPORT SPECIALIST) eGFR 77 mL/min/1. 73 m2 AMAURY WINKLER [...] reviewed 2021. Blood 04/02/2023 12:5 5 PM MISSION SUPPORT SPECIALIST 04/02/2023 12:59 PM MISSION SUPPORT SPECIALIST Keith Montes De Oca MD LAB BLOOD ORDERABLES Rachael bain Result [facility] [address] [facility] Department [place] [address] * POCT lipid panel (03/23/2023 2:24 PM MISSION SUPPORT SPECIALIST) Cholesterol, POC 111 mg/dL HDL, POC 31 mg/dL Triglycerides, POC 123 mg/dL LDL Cholesterol POC 56 mg/dL Chol/HDL Ratio, POC 3.6 Non-HDL Cholesterol, POC 81 mg/dL Cholesterol Total, POC 111 mg/dL Capillary blood 03/23/2023 2 :24 PM MISSION SUPPORT SPECIALIST Ayan Bai MD POINT OF CARE TEST ORDER RICK Final Result from Last 3 Months or Most Recently Relevant to Health Maintenance Insurance MEDICARE [facility] [place] Advance Directives For more information, please contact: [phone] * Full Code (Latest Code Status on File) Date Activated Date Inactivated Comments 03/30/2023 11:28 AM 03/31/2023 5:29 PM Care Teams Returns Clerk Relationship Specialty Start Date End Date Phi Velez MD [address] [place] [facility] [place] [address] PCP - General Family Medicine 03/30/23 Shamar Dumont MD [address] [place] [address] [address] Surgeon Vascular Surgery 02/24/22 Ayan Bai MD [address] [place] [facility] [place] [address] Consulting Physician Cardiology 03/18/23
--- OUTSIDE RECORDS SUMMARY | 2024-07-21 00:27 | XMS_ITS | Clinical Summary ---
Author Organization [facility] Address [address] [place] [phone] Phone [email or web address] Care Team Providers Care Memorial Designer Name Role Phone Unavailable Primary Care Provider [...] Comments Blood Pressure 114/72 03/22/2019 10:38 AM [facility] Pulse 65 03/22/2019 10:38 AM [facility] Temperature 36.9 C (98.4 F) 03/22/2019 10:38 AM [facility] Respiratory Rate 16 03/22/2019 10:38 AM [facility] Oxygen Saturation 93% 03/22/2019 10:38 AM [facility] Inhaled Oxygen Concentration - - Weight 101 kg (222 lb 9.6 oz) 03/22/2019 10:38 A M [facility] Height 180.3 cm (5' 11 ) 03/22/2019 10:38 AM [facility] Body Mass Index 31.05 03/22/2019 10:38 AM [facility] Plan of Treatment Health Maintenance Due Date Last Done Comments Dental Cleaning/Exam 1955 Tetanus Diphtheria and Pertu ssis Immunization (1 - Tdap) 1972 Colorectal Cancer Screening 10/25/1983 Pneumococcal: 65+ Years (1 o f 1 - PCV) 10/25/2003 Zoster Immunization (1 of 2) 10/25/2003 Covid-19 Immunization (1 - 2 -25 season) 2023 Influenza Immunization (Seas on Ended) 2024 HIB Immunization Aged Out No longer e [...]
--- OUTSIDE RECORDS SUMMARY | 2024-07-21 00:27 | XMS_ITS | Clinical Summary ---
Author Organization [facility] at the [facility] Address [address] [place] [address] Care Team Providers Care Scagliola Mechanic Name Role Phone Shamar Dumont MD Unavailable [phone] Ayan Bai MD Unavailable [phone] Phi Velez MD Primary Care Provider + [phone] Allergies Active Allergy Reactions Criticality Noted Date [...] 05/05/2023 Assessment & Plan (05/05/2023 10:49 AM PRECISION GRINDER): Status post percutaneous EVAR. Patient doing very [...] repair with a small type 2 endoleak. [place] aneurysms sac is stable measuring 5.1 cm. [...] 02/27/2022 Assessment & Plan (03/11/2023 10:10 AM PRECISION GRINDER): Diabetes type 2 chronic and controlled. Continue current medical management per PCP. Assessment & Plan (02/27/2022 2:09 PM PRECISION GRINDER): Impression: Newly diagnosed type 2 diabetes. Patient [...] Lipitor. Assessment & Plan (03/11/2023 10:10 AM PRECISION GRINDER): Hyperlipidemia chronic and controlled. Continue Lipitor. Assessment & Plan (02/27/2022 2:09 PM PRECISION GRINDER): Impression: Chronic hyperlipidemia, controlled with statin therapy. Plan: Continue statin therapy as per primary care provider. Assessment & Plan (02/28/2021 10:47 AM PRECISION GRINDER): Hyperlipidemia chronic and stable. Continue Lipitor. Assessment & Plan (02/14/2021 9:28 AM PRECISION GRINDER): Hyperlipidemia chronic and stable. Continue Lipitor. 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 Patient was a good endovascular candidate and I have recommended proceeding with percutaneous EVAR. The procedure indications and all associated risks have been explained. Patient understands and agrees to proceed. Assessment & Plan (02/27/2022 2:10 PM PRECISION GRINDER): Impression: Patient has a stable 4.4 cm infrarenal abdominal aortic aneurysm. He remains asymptomatic. Plan: No surgical interventions are needed at this time. Continue ongoing risk factor modifications. Patient to follow-up in 1 year for re-evaluation with CTA of abdomen pelvis. Assessment & Plan (02/28/2021 10:46 AM PRECISION GRINDER): CT scan shows 4.3 cm fusiform infrarenal abdominal aortic aneurysm. This does not warrant further intervention and or surgical repair currently. Recommend yearly CT surveillance and follow-up at that time. Assessment & Plan (02/14/2021 9:28 AM PRECISION GRINDER): On screening ultrasound patient was found to [...] uit: 11/20/2020 Tobacco Cessation:Counseling Given: Not Answered Telemedicine Clinicities Answer Date Recorded In the past 12 months has th e getupp, gas, oil, or water Active [employer] threatened to shut off services in your [...] week 03/31/2023 How often do you attend [facility] or protestant services? Never 03/31/2023 Do you belong to any clubs o r organizations such as buddhism groups, unions, fraternal or athletic groups, or [...] place to sleep or slept in a correction (including now)? No 03/31/2023 Personal Safety Answer Date Recorded Have you ever been in or are you currently in a harmful physical or emotional relationship or is someone making you feel afraid or unsafe? Denies 04/02/2023 Sex and Gender Information Value Date Recorded Sex Assigned at Not on file Legal Sex Male 3:57 PM PRECISION GRINDER Gender Identity Male 03/19/2021 3:16 PM PRECISION GRINDER Sexual Orientation Straight 03/19/2021 3: 16 PM PRECISION GRINDER Obstetrics History Last Filed Vital Signs Vital Sign Reading Time Taken Comments Blood Pressure 137/74 09/02/2023 9:20 AM CDT Pulse 60 09/02/2023 9:20 AM CDT Temperature 36.8 C (98.3 F) 04/02/2023 12:24 PM PRECISION GRINDER Respiratory Rate 18 04/02/2023 4:10 PM PRECISION GRINDER Oxygen Saturation 93% 04/02/2023 4:15 PM PRECISION GRINDER Inhaled Oxygen Concentration - - Weight 108 [...] 2023-2 5 season) 2023 12/12/2020, 05/27/2020, 05/06/2020 Lipid Panel 03/23/2024 03/23/2023, 03/09, 11/10/2019 Fall Risk Assessment 03/31/2024 03/31/2023 eGFR 04/02/2024 04/02/2023, 03/10, 03/18/2023 Influenza Vaccine (Season Ended) 2024 12/11/19 21 Abdominal Aortic Aneurysm (A AA) Screen Completed 09/02/2023, 08/17/2023, 05/22/2023, Additional history exists Medical Devices Implanted Type Area Turkey Boner Device Identifier Shelf Expiration Date Model / Serial / Lot Mesh Mesh Bilateral: Inguinal [employer] Excluder 14.5mm 32mm 14cm 6.5cm Conformable Active Control Trunk [id number] - [id number] - [id number] Implanted:Qty: 1 on 03/30/2023 by Shamar Dumont MD at [facility] N/A: Aorta [employer] [id number] 01/07/2026 [id number] / [id number] / [employer] Device Clsr Perclose Prostyle Sut-Mediatd Closure-Repair Sys 86758-89 - [id number] Implanted:Qty: 1 on 03/30/2023 by Shamar Dumont MD at [facility] Left: Groin [employer] 09/05/2024 [id number] / / [id number] [employer] Device Clsr Perclose Prostyle Sut-Mediatd Closure-Repair Sys 64528-21 - [id number] Implanted:Qty: 1 on 03/30/2023 by Shamar Dumont MD at [facility] Left: Groin [employer] 10/06/2024 [id number] / / [id number] [employer] Device Clsr Perclose Prostyle Sut-Mediatd Closure-Repair Sys 16083-71 - [id number] Implanted:Qty: 2 on 03/30/2023 by Shamar Dumont MD at [facility] Right: Groin [employer] 11/07/2023 [id number] / / [id number] [employer] Device Clsr Perclose Prostyle Sut-Mediatd Closure-Repair Sys 67323-47 - [id number] Implanted:Qty: 1 on 03/30/2023 by Shamar Dumont MD at [facility] Right: Groin [employer] 12/06/2024 [id number] / / [id number] [employer] Excluder 23mm 18.5-21.5mm 12cm Stent Abrasion Resistant [id number] - [id number] - [id number] Implanted:Qty: 1 on 03/30/2023 by Shamar Dumont MD at [facility] Left: Iliac [employer] [id number] 11/09/2025 [id number] / [id number] / [employer] Excluder 23mm 18.5-21.5mm 10cm Stent Abrasion Resistant [id number] - [id number] - [id number] Implanted:Qty: 1 on 03/30/2023 by Shamar Dumont MD at [facility] Right: Iliac [employer] [id number] 01/07/2026 [id number] / [id number] / Procedures Procedure Name Priority Date/Time Associated Diagnosis Comments CTA ABDOMEN PELVIS W WO CONTRAST Schedule Routine, Read Routine (OP Routine) 08/17/2023 9:58 AM CDT Aftercare following surgery of the circulatory system EGFR STAT 04/02/2023 12:55 PM PRECISION GRINDER POCT LIPID PANEL Routine 03/23/2023 2:24 PM PRECISION GRINDER Mixed diabetic hyperlipidemia associated with type 2 [...] repair with a small type 2 endoleak. [place] aneurysms sac is stable measuring 5.1 cm. [...] No definite evidence of stent migration. The bois forte aneurysmal sac measures 5.5 x 5.3 cm [...] post aorto bi-iliac stent graft repair. The bois forte aneurysmal sac measures 5.5 x 5.3 cm, [...] Jung Espinoza M.D. AM T: Report ID: [id number] Reading Location: [id number] Procedure Note Jung Espinoza MD - 08/17/2023 EXAM DESCRIPTION: CTA ABDOMEN PELVIS REASON FOR STUDY: AAA, post repair, PEVAR 03/30/23 Patient is status post repair of a 5.1 cm infrarenal abdominal aortic aneurysms. Patient continues to recover well. He remains asymptomatic.CTA of abdomen and pelvis performed on 05/14/2023 reveals a patent endograft repair with a small type 2 endoleak. [place] aneurysms sac is stable measuring 5.1 cm. [...] No definite evidence of stent migration. The bois forte aneurysmal sac measures 5.5 x 5.3 cm [...] post aorto bi-iliac stent graft repair. The bois forte aneurysmal sac measures 5.5 x 5.3cm, previously [...] Jung Espinoza M.D. AM T: Report ID: [id number] Reading Location: [place] [address] [address] [place] NP IMG CT PROCEDURES Final R esult * eGFR (04/02/2023 12:55 PM PRECISION GRINDER) eGFR 77 mL/min/1. 73 m2 AMAURY WINKLER [...] reviewed 2021. Blood 04/02/2023 12:5 5 PM PRECISION GRINDER 04/02/2023 12:59 PM PRECISION GRINDER us Keith Montes De Oca MD LAB BLOOD ORDERABLES Rachael bain Result AMAURY [address] [facility] Department [place] [address] * POCT lipid panel (03/23/2023 2:24 PM PRECISION GRINDER) Cholesterol, POC 111 mg/dL HDL, POC 31 mg/dL Triglycerides, POC 123 mg/dL LDL Cholesterol POC 56 mg/dL Chol/HDL Ratio, POC 3.6 Non-HDL Cholesterol, POC 81 mg/dL Cholesterol Total, POC 111 mg/dL Capillary blood 03/23/2023 2 :24 PM PRECISION GRINDER Ayan Bai MD POINT OF CARE TEST ORDER RICK Final Result from Last 3 Months or Most Recently Relevant to Health Maintenance Insurance MEDICARE [employer] Advance Directives For more information, please contact: [phone] * Full Code (Latest Code Status on File) Date Activated Date Inactivated Comments 03/30/2023 11:28 AM 03/31/2023 5:29 PM Care Teams Scagliola Mechanic Relationship Specialty Start Date End Date Phi Velez MD [address] [place] [address] PCP - General Family Medicine 03/30/23 Shamar Dumont MD [address] [place] [address] Surgeon Vascular Surgery 02/24/22 Ayan Bai MD [address] [place] [address] Consulting Physician Cardiology 03/18/23
--- OUTSIDE RECORDS SUMMARY | 2024-07-21 00:27 | XMS_ITS ---
Author Organization [facility] [place] [facility] Address [address] [place] [address] Care Team Providers Care Mud Plant Operator Name Role Phone Shamar Dumont MD Unavailable Ayan Bai MD Unavailable [phone] Phi Velez MD Primary Care Provider [phone] Active Problems Problem Noted Date Diagnosed Date Aftercare following surgery of the circulatory s ystem 05/05/2023 Assessment & Plan (05/05/2023 10:49 AM CORPORATE BOND TRADER): Status post percutaneous EVAR. Patient doing very [...] repair with a small type 2 endoleak. [place] aneurysms sac is stable measuring 5.1 cm. [...] 02/27/2022 Assessment & Plan (03/11/2023 10:10 AM CORPORATE BOND TRADER): Diabetes type 2 chronic and controlled. Continue current medical management per PCP. Assessment & Plan (02/27/2022 2:09 PM CORPORATE BOND TRADER): Impression: Newly diagnosed type 2 diabetes. Patient [...] Lipitor. Assessment & Plan (03/11/2023 10:10 AM CORPORATE BOND TRADER): Hyperlipidemia chronic and controlled. Continue Lipitor. Assessment & Plan (02/27/2022 2:09 PM CORPORATE BOND TRADER): Impression: Chronic hyperlipidemia, controlled with statin therapy. Plan: Continue statin therapy as per primary care provider. Assessment & Plan (02/28/2021 10:47 AM CORPORATE BOND TRADER): Hyperlipidemia chronic and stable. Continue Lipitor. Assessment & Plan (02/14/2021 9:28 AM CORPORATE BOND TRADER): Hyperlipidemia chronic and stable. Continue Lipitor. Carcinoma [...] 05/22/2023 Assessment & Plan (03/11/2023 10:10 AM CORPORATE BOND TRADER): Recent CT scan shows increased growth now measuring 5.1 cm. Patient was a good endovascular candidate and I have recommended proceeding with percutaneous EVAR. The procedure indications and all associated risks have been explained. Patient understands and agrees to proceed. Assessment & Plan (02/27/2022 2:10 PM CORPORATE BOND TRADER): Impression: Patient has a stable 4.4 cm infrarenal abdominal aortic aneurysm. He remains asymptomatic. Plan: No surgical interventions are needed at this time. Continue ongoing risk factor modifications. Patient to follow-up in 1 year for re-evaluation with CTA of abdomen pelvis. Assessment & Plan (02/28/2021 10:46 AM CORPORATE BOND TRADER): CT scan shows 4.3 cm fusiform infrarenal abdominal aortic aneurysm. This does not warrant further intervention and or surgical repair currently. Recommend yearly CT surveillance and follow-up at that time. Assessment & Plan (02/14/2021 9:28 AM CORPORATE BOND TRADER): On screening ultrasound patient was found to have a 5.1 cm fusiform infrarenal abdominal aortic aneurysm. Will follow up with CT scan evaluation. Patient to follow-up in 2 weeks.
--- OUTSIDE RECORDS SUMMARY | 2024-07-21 00:27 | XMS_ITS | Continuity of Care Document ---
Author Organization [facility] [place] Address [address] [place] [address] Phone Care Team Providers Care Applications Instructor Name Role Phone Lefty Puga MD Unavailable Unavailable Allergies, Adverse Reactions, Alerts Substance Reaction Status Criticality No Known Allergies Active No Inform ation Medications Medication Instructions Dosage Effective Dates (start - stop) Status Comments atorvastatin 40 mg tablet take 1 tablet by oral route every day 40 MG - Active B12 Active 1,000 mcg chewable tablet - Active D3-2000 50 mcg (2,000 unit) capsule take one 5000 IU tablet by oral route every day - Active Ocuvite Eye Health 50 mg-15 unit-4.5 mg-2.5 mg chewable tablet - Active tamsulosin 0.4 mg capsule take 1 capsule by oral route every day 1/2 hour following the same meal each day 0.4 MG - Active prednisolone acetate 1 % eye drops,suspension instill 1 drop by ophthalmic route QID in surgical eye for 5 days post laser - No Longer Active Procedures Procedure Date Gonioscopy, One Or Both Eyes No Charge Office Visit Gonioscopy, One Or Both Eyes [facility] OCT/Optic Nerve/One Or Both Eyes 2019 Gonioscopy, One Or Both Eyes Visual field exam Extended Eye Exam New Patient Advance Directives Directive Yes / No Effective Date File Name No Information Encounters Encounter Description Practice Location Reason(s) For Visit Diagnoses Date Provider Providers Copied on Encounter [facility], , [address] [place] [address], [id number], [place] tel:[phone] [facility] S/P YAG PI (12/07/2019 ) (chief complaint)S /P YAG PI (11/30/2019 ) (chief complaint)S /P YAG PI (12/07/2019 ) (chief complaint)S /P YAG PI (11/30/2019 ) (chief complaint) Anatomical narrow angle, right eyeAnatomical narrow angle, left eyeNuclear Sclerosis Cataract, Bilateral Oct-1 6-202 0 Vivien Olea. [address] [place] [address], [id number], [place]. tel:[phone] Specialist : Yaritza Chan [facility] [place], [address]. tel:[phone] erring Provider: Yaritza Okeefe [facility] [place], [address]. tel:[phone] [facility], , [address] [place] [address], [id number], tel:[phone] [facility] No Information Sep-3 0-202 0 Vivien Olea. [address] [place] [address], [id number], [place]. tel:[phone] [facility], , [address] [place] [address], [id number], [place] tel:[phone] [facility] No Information Sep-3 0-202 0 [facility]. [address] [place], [id number], [place]. tel:[phone] Referring Provider: Lefty Farley. [facility], , [address] [place] [address], [id number], [place] tel:[phone] [facility] No Information Sep-2 3-202 0 Vivien Olea. [address] [place] [address], [id number], [place]. tel:[phone] [facility], , [address] [place], [place], [id number], tel:[phone] [facility] No Information 0 [facility]. [address] [place], [id number], [place]. tel:[phone] Referring Provider: Lefty Farley. [facility], , [address] [place], [place], [id number], tel:[phone] [facility] narrow angles (chief complaint)f loaters (chief complaint)n arrow angles (chief complaint)f loaters (chief complaint) Anatomical narrow angle, right eyeAnatomical narrow angle, left eyeNuclear Sclerosis Cataract, Bilateral 0 Vivien Olea. [address] [place], [place], [id number], . tel:[phone] Specialist : Yaritza Chan, [address] [place] [address], [address]. tel:[phone] Family History Family Member Type Diagnosis Age At Onset Sister Problem (finding) Diabetes mellitus Father Problem (finding) Cancer, unknown Payers Payer name Insurance type Covered libertarian ID Authoriza tion(s) Medicare [place] MB [id number] Aetna Supplemental Plan CI [id number] Social History Type Description Quantity Date Captured Comments Alcohol Use Details Caffeine Use Details Tobacco Use Status Smoking Status Current every day smoker 2019 Sex Male Chief Complaint And Reason For Visit From encounter dated '12/23/2019 10:35'. S/P YAG PI (12/07/2019) (chief complaint). Description: The 64 Year old male presents for evaluation of S/P YAG PI in the right eye. DURATION: 2 week(s) since last visit.ONSET: being observed, TIMING: constant, HAPPENS: all the timePt states he is doing well. No change in VA S/P YAG PI (11/30/2019) (chief complaint). Description: The patient complains of S/P YAG PI (11/30/2019) in the left eye. DURATION: 3 week(s) since last visit.ONSET: being observed, TIMING constant, HAPPENS: all the timeDoing well, no change in VA. Feels OS is less tired. S/P YAG PI (12/07/2019) (chief complaint) S/P YAG PI (11/30/2019) (chief complaint) Reason For Referral Reason For Referral No Information History Of Present Illness Encounter Date Complaint History Of Prese nt Illness S/P YAG PI (12/07/2019) The 64 Y ear old male presents for evaluation of S/P YAG PI in the right eye. DURATION: 2 week(s) since last visit.ONSET: being observed, TIMING: constant, HAPPENS: all the timePt states he is doing well. No change in VA S/P YAG PI (11/30/2019) The amy ent complains of S/P YAG PI (11/30/2019) in the left eye. DURATION: 3 week(s) since last visit.ONSET: being observed, TIMING constant, HAPPENS: all the timeDoing well, no change in VA. Feels OS is less tired. floaters The patient comp lains of floaters in the left eye. year(s). AFFECTS both near and far vision, TIMING constant, HAPPENS: all the time narrow angles The 63 Year old male presents for evaluation of narrow angles in the right eye and left eye. DURATION: 1 month(s) since last visit with Rocio.ONSET: being observed, AFFECTS: both near and far vision, TIMING: constant, HAPPENS: all the time, Referred by Dr. hCan. Pt states no blur in vision. Denies pain, flashes or new floaters..Referred by Dr. Chan. Pt states no blur in vision. Denies pain, flashes or new floaters. Functional Status Date Functional Assessmen t No Information Instructions Date Instruction Additional Infor krysta Impression/Plan - pa tient referred by Dr. Chan for uneven iris/narrow angless/p LPI OUHVF 09/25 shows full OUOCT 09/25 shows full OD, mild thinning OS, ? optic nerve drusen OUangles on gonio no longer occludable, safe to dilatecontinue care with Dr. Chan and at [facility] as needed per Dr. Chan Related to Anatomical narrow angle, right eye Impression/Plan - see plan 1 Rel ated to Anatomical narrow angle, left eye Impression/Plan - ap proaching visual significance, patient content with vision for nowf/u with Dr. Chan and when patient is ready for cataract surgery should return to see Dr. Puga Related to Nuclear Sclerosis Cataract, Bilateral Impression/Plan - pa carol annmeng referred by Dr. Chan for uneven iris/narrow anglesHVF 20 shows full OUOCT 720 shows full OD, mild thinning OS, ? optic nerve drusen OUangles on gonio appear occludable, recommend LPI OS first, then OD*drops send to patient's pharmacyAngles on gonioscopy appear occludable. I believe patient is at risk for an acute angle glaucoma attack. Discussed laser peripheral iridotomies and R/B of this laser including IOP spike, vision changes, and need for further treatment in small number of patients. Patient understands and elects laser treatment. Related to Anatomical narrow angle, right eye Impression/Plan - see plan #1 Re lated to Anatomical narrow angle, left eye Impression/Plan - wi ll re-eval after LPI's OU Related to Nuclear Sclerosis Cataract, Bilateral Follow up - Will james edule LPI OS first, then OD Assessments Type Assessment Date assessment Anatomical narrow angle, right e ye impression Anatomical narrow angle, right e ye: H40.031 OD. assessment Anatomical narrow angle, left ey e impression Anatomical narrow angle, left ey e: H40.032 OS. assessment Nuclear Sclerosis Cataract, Bila teral impression Nuclear Sclerosis Cataract, Bila teral: H25.13 OU. Patient Care Teams Name Effective Dates (start - stop) Status Members No Information
[2024-07-21 07:38] VITALS: BP 136/89; PULSE 77; RESP 20; TEMP 36.4; O2SAT 97; BMI 33.4
[2024-07-21] MEDS: LACTATED RINGERS 1,000 ML 150 ML IV CONT (07:47)
--- NOTE | 2024-07-21 08:02 | WPDANESEPPF ---
Anes - Initial Pre Proc Eval Procedure: Operation Date: 07/21/24 08:30 Proposed Procedures p Colonoscopy - Gibson Wade MD Date/Time: 07/21/24 08:02 Surgeon: Gibson Wade MD Pre Op Diagnosis: hx of colon polyps Patient Data Age: 68 Gender: M Height: 1.8 m Weight: 108.8 kg Last Vital Signs Temp 36.4 C L 07/21/24 07:38 Pulse 77 07/21/24 07:38 Resp 20 07/21/24 07:38 BP 136/89 07/21/24 07:38 Pulse Ox 97 07/21/24 07:38 O2 Del Method Room Air 07/21/24 07:38 Allergies Allergy/AdvReac Type Severity Reaction Status Date / Time No Known Allergies Allergy Verified 07/21/24 07:32 Home Medications Medication Instructions Recorded Confirmed Type cyanocobalamin (vitamin B-12) 1,000 mcg PO DAILY 11/07/20 07/21/24 History 1,000 mcg capsule lutein 25 mg-zeaxanthin 5 mg 1 cap PO DAILY 11/07/20 07/21/24 History capsule (Ocuvite Lutein) albuterol sulfate 90 mcg/actuation 2 inh inhalation Q4H PRN shortness 10/24/21 07/13/24 Rx aerosol inhaler of breath or wheezing #8.5 grams blood sugar diagnostic (OneTouch #50 ea 02/07/22 05/12/24 Rx Verio test strips) lancets 30 gauge #200 ea 02/07/22 05/12/24 Rx cholecalciferol (vitamin D3) 125 125 mcg PO DAILY 03/24/22 07/21/24 History mcg (5,000 unit) tablet lisinopril 5 mg tablet 5 mg PO DAILY microalbuminuria #90 04/17/24 07/21/24 Rx tabs atorvastatin 40 mg tablet See Rx Instructions .Route 06/05/24 07/21/24 Rx .COMPLEX #90 tabs tamsulosin 0.4 mg capsule 0.4 mg PO DAILY #90 caps 06/09/24 07/21/24 Rx Patient hx anesthesia problems: none Family hx anesthesia problems: none Results Review: All pre-operative results and documents have been reviewed as part of the pre-operative evaluation. [facility] Past Medical History Medical History Smoking greater than 20 pack years Right foot pain Umbilical hernia Vitamin deficiency Obesity (BMI 30-39.9) Elevated glucose Prediabetes Tobacco use BMI 31.0-31.9,adult Diarrhea BMI 34.0-34.9,adult BMI 35.0-35.9,adult BMI 33.0-33.9,adult Aortic aneurysm without rupture Vitamin D deficiency, unspecified Hyperlipidemia BMI 32.0-32.9,adult Surgical History Surgical History History of repair of thoracic aortic aneurysm infrarenal H/O right knee surgery H/O bilateral inguinal hernia repair History of neoplasm of bladder tumor removal 2014 Family History Family History Father , 1971 Stomach cancer Alcohol abuse Mother Pulmonary embolism H/O fracture of hip Sibling Diabetes mellitus Social History Social History Smoking packs per day: 0.5 Smoking cigarettes per day: 10.0 Years smoked: 40 Smoking pack-years: 20.00 Smoking status: Former smoker Tobacco type: cigarettes Second hand tobacco smoke exposure: Yes Smoking end date: 11/20/20 Alcohol intake: current Drinks per week: 10 Substance use: never Substance use type: does not use Do You Feel Safe in your Home?: Yes Lack of Transportation: No Lack of Food: Never True Current Housing: I Have Housing Concerned About Future Housing: No Difficulty Paying Gas/Electric Bills: No Difficulty Paying for Meds: No Currently Unemployed: No Education: Associate Degree Difficulty w/ Childcare or Family Care: No Living arrangements: with family Occupation/Education: retired Additional occupation/education comments: [employer] Gender identity (if verbalized by the patient): Male Spiritual care concerns: No Anes - Eval Final PreProcedure Day of Procedure 07/21/24 08:02 Patient weight: obese Heart: regular rate and rhythm Lungs: clear to auscultation Airway: Mallampati scale class II Neurological: alert and oriented Last oral intake: >/= 8 hours ASA classification: III Emergent: no Anesthetic plan: proceed Anesthesia type and monitoring: general and standard monitoring Results Review: All pre-operative results and documents have been reviewed as part of the pre-operative evaluation. Informed Consent: The patient's anesthetic plan and its attendant risks and benefits were discussed with the patient/family/POA. Questions were solicited and answers provided to the satisfaction of the patient/family/POA.
[2024-07-21 08:09] LABS: Glucose Point of Care 133 mg/dl (65-105)
--- NOTE | 2024-07-21 08:29 | PM.IMHP ---
H&P: HPI History of Present Illness Date/Time: 07/21/24 08:29 Chief Complaint: history of colon polyps Narrative: The patient has a history of colonic polyps, the last colonoscopy was 5 years ago. Review of Systems Review of Systems: All systems reviewed & are unremarkable except as noted in HPI and below PMFSH Past Medical History Medical History Smoking greater than 20 pack years Right foot pain Umbilical hernia Vitamin deficiency Obesity (BMI 30-39.9) Elevated glucose Prediabetes Tobacco use BMI 31.0-31.9,adult Diarrhea BMI 34.0-34.9,adult BMI 35.0-35.9,adult BMI 33.0-33.9,adult Aortic aneurysm without rupture Vitamin D deficiency, unspecified Hyperlipidemia BMI 32.0-32.9,adult Surgical History Surgical History History of repair of thoracic aortic aneurysm infrarenal H/O right knee surgery H/O bilateral inguinal hernia repair History of neoplasm of bladder tumor removal 2014 Family History Family History Father , 1970 Stomach cancer Alcohol abuse Mother Pulmonary embolism H/O fracture of hip Sibling Diabetes mellitus Social History Social History Smoking packs per day: 0.5 Smoking cigarettes per day: 10.0 Years smoked: 40 Smoking pack-years: 20.00 Smoking status: Former smoker Tobacco type: cigarettes Second hand tobacco smoke exposure: Yes Smoking end date: 11/20/20 Alcohol intake: current Drinks per week: 10 Substance use: never Substance use type: does not use Do You Feel Safe in your Home?: Yes Lack of Transportation: No Lack of Food: Never True Current Housing: I Have Housing Concerned About Future Housing: No Difficulty Paying Gas/Electric Bills: No Difficulty Paying for Meds: No Currently Unemployed: No Education: Associate Degree Difficulty w/ Childcare or Family Care: No Living arrangements: with family Occupation/Education: retired 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 Gender identity (if verbalized by the patient): Male Spiritual care concerns: No Meds Home Medications and Allergies Home Medications Medication Instructions Recorded Confirmed Type cyanocobalamin (vitamin B-12) 1,000 mcg PO DAILY 11/07/20 07/21/24 History 1,000 mcg capsule lutein 25 mg-zeaxanthin 5 mg 1 cap PO DAILY 11/07/20 07/21/24 History capsule (Ocuvite Lutein) albuterol sulfate 90 mcg/actuation 2 inh inhalation Q4H PRN shortness 10/24/21 07/13/24 Rx aerosol inhaler of breath or wheezing #8.5 grams blood sugar diagnostic (OneTouch #50 ea 02/07/22 05/12/24 Rx Verio test strips) lancets 30 gauge #200 ea 02/07/22 05/12/24 Rx cholecalciferol (vitamin D3) 125 125 mcg PO DAILY 03/24/22 07/21/24 History mcg (5,000 unit) tablet lisinopril 5 mg tablet 5 mg PO DAILY microalbuminuria #90 04/17/24 07/21/24 Rx tabs atorvastatin 40 mg tablet See Rx Instructions .Route 06/05/24 07/21/24 Rx .COMPLEX #90 tabs tamsulosin 0.4 mg capsule 0.4 mg PO DAILY #90 caps 06/09/24 07/21/24 Rx Allergies Allergy/AdvReac Type Severity Reaction Status Date / Time No Known Allergies Allergy Verified 07/21/24 07:32 Vital Signs Vital Signs - 24 hr 07/21/24 07:38 Temperature 97.5 F L Pulse Rate 77 Respiratory Rate 20 Blood Pressure 136/89 Pulse Oximetry 97 Oxygen Delivery Room Air Exam Const: General: cooperative and healthy appearing Resp: Effort & Inspection: normal respiratory effort and able to speak in complete sentences Auscultation: clear to auscultation bilaterally Cardio: Rate: regular rate Rhythm: regular rhythm GI: Inspection: normal to inspection GI Palp: No No hepatosplenomegaly present Auscultation: normal bowel sounds Rectal Exam: deferred Skin: General skin exam: normal color Psych: Appearance: grossly normal Mental Status: mental status grossly normal Assessment and Plan Assessment and plan (1) History of colonic polyps: Code(s): Z86.0100 - Personal history of colon polyps, unspecified Status: Acute Assessment and Plan: The patient is deemed a good candidate for the procedure. Consent signed. Will proceed.
[2024-07-21] MEDS: SIMETHICONE ORAL SUSPENSION 20 MG/0.3 ML 30 ML BOTTLE 0.6 ML IRRIGATION (08:49)
[2024-07-21 08:59] VITALS: BP 122/80; PULSE 56; RESP 18; O2SAT 93
[2024-07-21 09:09] VITALS: BP 121/70; PULSE 61; RESP 18; O2SAT 98
[2024-07-21 09:19] VITALS: BP 135/85; PULSE 64; RESP 20; O2SAT 98
== END 2024-07-21 09:30 | disposition home or self-care (01) ==
PROVIDERS: PCP Family Medicine; Referring Provider Internal Medicine Gastroenterology; Visit Provider Internal Medicine Gastroenterology
PROC: 0DJD8ZZ Inspection of Lower Intestinal Tract, Via Natural or Artificial Opening Endoscopic (ICD-10-PCS; CPT 45378; principal; 2024-07-21 08:30)
DX: Z12.11 Encounter for screening for malignant neoplasm of colon (principal); D12.5 Benign neoplasm of sigmoid colon; D12.0 Benign neoplasm of cecum; K64.8 Other hemorrhoids; K57.30 Diverticulosis of large intestine without perforation or abscess without bleeding; E78.5 Hyperlipidemia, unspecified; E55.9 Vitamin D deficiency, unspecified; R73.03 Prediabetes; E66.9 Obesity, unspecified; Z68.33 Body mass index [BMI] 33.0-33.9, adult; Z79.51 Long term (current) use of inhaled steroids; Z98.890 Other specified postprocedural states; Z87.891 Personal history of nicotine dependence; Z86.79 Personal history of other diseases of the circulatory system; Z80.0 Family history of malignant neoplasm of digestive organs
CPT/HCPCS: 45385; 82948; 88305; J2003; J2704; J7120